=== PATIENT | female | born 1950 | race Caucasian/White ===

== ENCOUNTER 2017-05-21 10:00 | Inpatient (IN) ==
[2017-05-21] MEDS ORDERED: Naloxone 0.4 MG/ML INJ IVP PRN (16:28)
[2017-05-21] MEDS ORDERED: Ondansetron 4 MG/2 ML VIAL IVP PRN (16:28)
[2017-05-21] MEDS ORDERED: *HR* HYDROcodone/Acet 5/325 mg TABLET PO PRN (16:34)
[2017-05-21] MEDS ORDERED: Ipratropium/Albuterol Neb 3 ML IH PRN (16:36)
[2017-05-21] MEDS ORDERED: *HR* Dextrose 50 % in Water (Syg) 50 ML SYRINGE IVP PRN (16:45)
[2017-05-21] MEDS ORDERED: Dextrose Gel 15 GM/37.5 ML TUBE PO PRN ×2 (16:45)
[2017-05-21] MEDS ORDERED: D5% in Water 1,000 ML IVC PRN (16:45)
--- NOTE | 2017-05-21 17:00 | Internal Med History&Physical ---
Date of Encounter: 05/21/17 Time of Encounter: 16:56 Assessment and Plan (1) Acute exacerbation of chronic obstructive airways disease Current visit: Yes Status: Acute 56-year-old female transferred from [place] in acute exacerbation of COPD requiring CPAP, on no home 02 Duo nebs every 4 scheduled and every 2 when necessary Solu-Medrol 60 every 6 hours BiPAP on and off schedule as tolerated 4 hours on 2 hours off with goal to maintain O2 nasal cannula to maintain sats greater than 88% Levaquin daily Ativan as needed while on BiPAP for anxiety Sputum culture Repeat ABGs and develops further respiratory distress (2) Diabetes mellitus Current visit: Yes Status: Acute Hold home medications Accu-Cheks before meals and at bedtime Low-dose coverage scale and diabetic diet Qualifiers: Diabetes mellitus type: type 2 Diabetes mellitus complication status: with unspecified complications Diabetes mellitus intermediate manager insulin use: unspecified halfway insulin use status Qualified Code(s): E11.8 - Type 2 diabetes mellitus with unspecified complications (3) Sore throat Current visit: Yes Status: Acute Check respiratory viral panel Cepacol lozenges for comfort (4) Hypertension Current visit: Yes Status: Chronic Monitor blood pressure and her medications as ordered Qualifiers: Hypertension type: essential hypertension Qualified Code(s): I10 - Essential (primary) hypertension (5) Mixed anxiety depressive disorder Current visit: Yes Status: Acute Home medications as ordered Ativan when necessary as needed (6) Tobacco abuse Current visit: Yes Status: Acute cessation education Internal Medicine - H&P: HPI Chief complaint: sob Admitted From: Hospital to Hospital Transfer Plans for Post Hospital Care: Home History of present illness: Ms. Anderson is a 66 year old female who presented to [facility] by [facility] this morning with shortness of breath, wheezing, cough, and sore throat. She was given 2 albuterol and 3 DuoNeb treatments at that facility, 125 mg of Solu- Medrol, Levaquin IV and Ativan and placed on BiPAP. Gases there were 7.31,/66/ 121/33/98%. Vital signs 98.6 heart rate 108 respiratory 24 and blood pressure 157/80 with pulse ox 84% on room air. She was placed on oxygen and then on a BiPAP at 40%. She was then transferred to this facility. She is currently sitting up in the bed at it at [address] degrees with BiPAP in place. She is able to speak now but is rather anxious. She states she has a history of COPD and bronchitis And continues to smoke 1 pack per day. She also has a history significant for hypertension, diabetes, tachycardia, orthopedic surgeries, cholecystectomy, depression and anxiety. She states she been sick for the past 2-3 days with a fever and just feeling general malaise denies nausea, vomiting, chest pain, abdominal pain, diarrhea or constipation. She states her breathing is much better now and her major complaint at this time is a sore throat. She is aware the plan is clear and has no questions Past Med Surg Social Fam HX - Past Medical History Medical history: COPD, diabetes, hypertension Psychiatric history: anxiety, depression - Past Surgical History Surgical History: cholecystectomy, orthopedic, other (teeth extraction) - Social History Smoking Status: Current every day smoker Packs per day: 1 Smokeless Tobacco Status: No Alcohol use: occasionally Drug use: none Occupational status: unemployed Current living situation: Home - Independent Activity Level: Independent ambulation - Additional Family History Additional family history: Father at age 56 from complications of lung disease, mother is alive at age 85 and is fairly healthy Internal Medicine - H&P: Meds Albuterol Sulfate [Ventolin Hfa] 108 mcg AER Q4HR PRN 05/21/17 [History] Amitriptyline HCl 100 mg PO DAILY 05/21/17 [History] Atenolol [Tenormin] 25 mg PO BID 05/21/17 [History] Buspirone HCl [Buspar] 7.5 mg PO BID 05/21/17 [History] Citalopram Hydrobromide [Citalopram HBr] 20 mg PO DAILY 05/21/17 [History] Docusate [Colace] 100 mg PO DAILY PRN 05/21/17 [History] Fluticasone Propionate [Flovent Hfa] 220 mcg IH BID 05/21/17 [History] Gabapentin [Neurontin] 900 mg PO BID 05/21/17 [History] GlipiZIDE [Glipizide ER] 20 mg PO BID 05/21/17 [History] HYDROcodone/Acet 5/325 mg [[place] 5-325 mg] 1 tab PO Q6H PRN 05/21/17 [History] Lovastatin [Mevacor] 20 mg PO BID 05/21/17 [History] Montelukast Sodium [Singulair] 10 mg PO DAILY 05/21/17 [History] Tizanidine HCl [Zanaflex] 4 mg PO TID PRN 05/21/17 [History] Triamterene/HCTZ 37.5/25mg [Dyazide] 1 each PO DAILY 05/21/17 [History] metFORMIN [Glucophage] 1,000 mg PO BIDWM 05/21/17 [History] 3 Allergy/AdvReac Type Severity Reaction Status Date / Time No Known Allergies Allergy Verified 05/21/17 07:40 All Systems PM: A 10-system review of systems was performed and is negative for pertinent findings except as documented above in the HPI. - Constitutional Constitutional: fever(s), malaise, no chills, no night sweats - EENT Eyes: no change in vision, no discharge, no pain, no photophobia Ears: no ear discharge, no ear pain, no tinnitus Nose, mouth and throat: sore throat, no dysphagia, no nasal discharge, no neck pain - Cardiovascular Cardiovascular ROS IM: no chest pain, no diaphoresis, no dyspnea, no lightheadedness, no palpitations, no syncope - Respiratory Respiratory: cough, dyspnea, dyspnea on exertion, wheezing, chest congestion, change in phlegm color (yellow), no excessive phlegm production - Gastrointestinal Gastrointestinal: no abdominal pain, no diarrhea, no hematemesis, no hematochezia, no melena, no nausea, no vomiting - Genitourinary Genitourinary: no change in urinary stream, no dysuria, no flank pain, no hematuria - Musculoskeletal Musculoskeletal ROS IM: no numbness, no tingling - Integumentary Integumentary IM: no rash, no unusual bruising - Neurological Neurological ROS: no confusion, no convulsions, no focal weakness, no numbness, no tingling, no tremor(s) - Hematologic/Lymphatic Hematologic/Lymphatic: no easy bruising - Constitutional Vitals: Temp Pulse Resp BP Pulse Ox 97.4 F L 99 19 169/83 98 05/21/17 14:30 05/21/17 14:30 05/21/17 14:30 05/21/17 14:30 05/21/17 14:30 General appearance: Present: mild distress, A&O X 3, pleasant, answers questions appropriately - Head Head exam: Present: atraumatic, normocephalic - Eye Eye exam: Present: conjuntiva pink, sclera anicteric - Neck Neck exam general surgery: Present: supple, trachea midline. Absent: lymphadenopathy - Respiratory Respiratory exam: Present: decreased breath sounds, wheezes. Absent: accessory muscle use, rales, respiratory distress, rhonchi - Cardiovascular Cardiovascular exam: Present: RRR, +S1, +S2. Absent: diastolic murmur, gallop, rubs, systolic murmur - GI/Abdominal GI/Abdominal exam: Present: normal bowel sounds, soft, no peritoneal signs. Absent: distended, tenderness - Extremities Exam Extremities exam: Present: warm, radial pulses palpable and symmetrical. Absent : calf tenderness, cyanotic, pedal edema - Neurological Exam Neurological exam: Present: oriented X3, no focal deficits. Absent: pronater drift, facial droop, speech deficit - Skin Skin exam: Present: dry, intact, warm
[2017-05-21] MEDS ORDERED: Ipratropium/Albuterol Neb 3 ML IH ONE (17:21)
[2017-05-21 17:43] LABS: ABG Base Excess 3 mEq/L (-2 to 3); ABG HCO3 32 mEq/L (21-27); ABG Oxygen Saturation 94 % (95-98); ABG PCO2 64 mmHg (35-45); ABG PH 7.31 pH Units (7.32-7.45); ABG PO2 80 mmHg (85-104); ABG TCO2 34 mEq/L (20-26)
--- NOTE | 2017-05-21 18:10 | Event Note ---
Date of Encounter: 05/21/17 Time of Encounter: 18:10 Patient seen and examined with nurse practitioner. Agree with assessment and plan
[2017-05-21] MEDS: Ipratropium/Albuterol Neb 3 ML IH SCH ×2 (19:31→23:18)
[2017-05-21] MEDS: Beclomethasone 80mcg MDI IH SCH (19:31)
[2017-05-21] MEDS ORDERED: *HR* LORazepam 2 MG/ML VIAL IVP SCH (20:00)
[2017-05-21] MEDS ORDERED: Insulin LISPRO 300 UNITS/3 ML VIAL SQ SCH (21:00)
[2017-05-21] MEDS: Gabapentin 300 MG CAPSULE PO SCH (22:15)
[2017-05-21] MEDS: methylPREDNISolone 125 MG/2 ML VIAL IVP SCH (22:16)
[2017-05-22] MEDS: methylPREDNISolone 125 MG/2 ML VIAL IVP SCH ×3 (00:38→12:14)
[2017-05-22] MEDS: Ipratropium/Albuterol Neb 3 ML IH SCH ×3 (03:35→11:24)
[2017-05-22 06:39] LABS: Basophils % 0.3 %; Immature Granulocytes % 0.3 % (0-4); Lymphocytes # 1.7 K/mcL (0.6-4.6); Lymphocytes % 23.9 %; Mean Corpuscular Hemoglobin 31.3 pg (28.0-33.3); Mean Corpuscular Volume 91.8 fL (83.0-100.0); Mean Platelet Volume 10.5 fL (9.4-12.4); Monocytes # 0.2 K/mcL (0.0-1.3); Monocytes % 2.4 %; Neutrophils # 5.1 K/mcL (1.6-8.9); Platelet Count 131 K/mcL (140-400); Red Blood Count 5.12 M/mcL (3.82-4.97); Red Cell Distribution Width 12.3 % (11.5-14.5); Segmented Neutrophils % 73.1 %
[2017-05-22 06:49] LABS: Activated Partial Thrombo Time 26.5 Seconds (26.0-36.0)
[2017-05-22 06:50] VITALS: BP 144/84
[2017-05-22 06:54] LABS: BUN/Creatinine Ratio 29 (6-26); Blood Urea Nitrogen 15 mg/dL (8-23); Calcium 8.8 mg/dL (8.6-10.3); Carbon Dioxide 33 mEq/L (23-29); Chloride 87 mEq/L (98-107); Chol/HDL Ratio 2.5 (0-4.9); Cholesterol 114 mg/dL (< 200); Glucose 212 mg/dL (70-105); HDL Cholesterol 45 mg/dL (40-59); LDL Cholesterol,Calculated 53 mg/dL (0-99); Magnesium 1.9 mg/dL (1.6-2.6); Osmolality,Calculated 267 (280-300); Phosphorous 2.7 mg/dL (2.7-4.5); Potassium 4.5 mEq/L (3.5-5.1); Sodium 125 mEq/L (136-145); Triglycerides 78 mg/dL (< 150); eGFR For African Americans > 60 (> 60); eGFR For Non-African Americans > 60 (> 60)
[2017-05-22] MEDS: Beclomethasone 80mcg MDI IH SCH (07:39)
[2017-05-22] MEDS: Gabapentin 300 MG CAPSULE PO SCH (08:45)
[2017-05-22] MEDS: Insulin LISPRO 300 UNITS/3 ML VIAL SQ SCH ×2 (08:46→12:14)
[2017-05-22] MEDS ORDERED: Levofloxacin 750 MG/150 ML 750 MG/150 ML BAG IVPB SCH (09:00)
--- NOTE | 2017-05-22 10:09 | Internal Med Progress Note ---
Date of Encounter: 05/22/17 Time of Encounter: 10:07 - Assessment and plan (1) Acute exacerbation of chronic obstructive airways disease Current Visit: Yes Status: Acute (2) Diabetes mellitus Current Visit: Yes Status: Acute Qualifiers: Diabetes mellitus type: type 2 Diabetes mellitus complication status: with unspecified complications Diabetes mellitus instructional coach insulin use: unspecified longterm insulin use status Qualified Code(s): E11.8 - Type 2 diabetes mellitus with unspecified complications (3) Sore throat Current Visit: Yes Status: Acute Assessment and plan: Respiratory panel pending the cepacol lozenges (4) Hypertension Current Visit: Yes Status: Chronic Qualifiers: Hypertension type: essential hypertension Qualified Code(s): I10 - Essential (primary) hypertension (5) Mixed anxiety depressive disorder Current Visit: Yes Status: Acute (6) Tobacco abuse Current Visit: Yes Status: Acute - Subjective Interval history: She is alert and oriented times 3 sitting up in bed. She has no complaints at this time. She reports she still has some shortness of breath but attributes this to move it around and talking a lot. - Constitutional Vitals: Temp Pulse Resp BP Pulse Ox 97.5 F L 82 18 144/84 93 05/22/17 06:49 05/22/17 06:49 05/22/17 07:38 05/22/17 06:49 05/22/17 09:07 General appearance: Present: mild distress, A&O X 3, pleasant, answers questions appropriately Exam: Gen.: Vitals noted. No acute distress. AAOx3 HEENT: oropharynx clear, Normocephalic, atraumatic Neck: Supple. No adenopathy. Cardiac: RRR, no murmur, +S1/S2 Pulmonary: decreased breath sounds, minimal diffuse wheezes, rales or rhonchi, equal chest expansion, accessory muscle usage Abdomen: soft, nontender, Bowel sounds noted, no guardingwelling noted Extremities: no BLE edema, nontender calf, no cyanosis or clubbing Neuro: A&Ox3s Psych: Appropriate mood and behavior Internal Medicine: Result - Labs CBC & Chem 7: 05/22/17 06:27 05/22/17 06:27 Labs: Short CBC 05/22/17 Range/Units 06:27 WBC 7.0 (4.3-11.1) K/mcL Hgb 16.0 H (11.5-15.4) g/dL Hct 47.0 H (35.3-44.9) % Plt Count 131 L (140-400) K/mcL Neutrophils # 5.1 (1.6-8.9) K/mcL BMP 05/22/17 06:27 Sodium 125 L Potassium 4.5 Chloride 87 L Carbon Dioxide 33 H BUN 15 Creatinine 0.51 L Glucose 212 H Calcium 8.8 Cardiac Enzymes 05/22/17 Range/Units 06:27 Troponin I < 0.03 (< 0.04) ng/mL - ABG Interpretation ABG results: ABG ABG pH 7.31 pH Units (7.32-7.45) L 05/21/17 17:40 ABG pCO2 64 mmHg (35-45) H 05/21/17 17:40 ABG pO2 80 mmHg (85-104) L 05/21/17 17:40 ABG O2 Saturation 94 % (95-98) L 05/21/17 17:40 PT/INR, D-dimer PT 11.0 Seconds (9.4-12.1) 05/22/17 06:27 - VTE Documentation of Mechanical Device: Graduated compression elastic hosiery Consult Discharge Plan - Plan Referrals: Jania Larsen, BEHAVIORAL SERVICES TECH [Primary Care Provider] -
--- NOTE | 2017-05-22 11:44 | Discharge Summary ---
<Candelario Linares - Last Filed: 05/22/17 15:22> Date of Encounter: 05/22/17 Time of Encounter: 11:38 - Discharge Diagnosis (1) Acute exacerbation of chronic obstructive airways disease Priority: Primary Status: Acute (2) Acute respiratory failure Priority: Secondary Status: Acute Qualifiers: Respiratory failure complication: hypercapnia Qualified Code(s): J96.02 - Acute respiratory failure with hypercapnia (3) Diabetes mellitus Priority: Secondary Status: Chronic Qualifiers: Diabetes mellitus type: type 2 Diabetes mellitus complication status: with unspecified complications Diabetes mellitus skilled nursing insulin use: unspecified skilled nursing insulin use status Qualified Code(s): E11.8 - Type 2 diabetes mellitus with unspecified complications (4) Hypertension Priority: Secondary Status: Chronic Qualifiers: Hypertension type: essential hypertension Qualified Code(s): I10 - Essential (primary) hypertension (5) Tobacco abuse Priority: Secondary Status: Acute - Discharge Medications Prescriptions: Levofloxacin [Levaquin] 500 mg PO DAILY #5 tablet predniSONE [PredniSONE] 10 mg PO DAILY #40 tablet Home Medications: Albuterol Sulfate [Ventolin Hfa] 2 puff IH Q4HR PRN 05/21/17 [History] Amitriptyline HCl 100 mg PO HS 05/21/17 [History] Atenolol [Tenormin] 25 mg PO BID 05/21/17 [History] Buspirone HCl [Buspar] 7.5 mg PO BID 05/21/17 [History] Citalopram Hydrobromide [Citalopram HBr] 20 mg PO DAILY 05/21/17 [History] Docusate [Colace] 100 mg PO DAILY PRN 05/21/17 [History] Fluticasone Propionate [Flovent Hfa] 1 puff IH BID 05/21/17 [History] Gabapentin [Neurontin] 900 mg PO BID 05/21/17 [History] HYDROcodone/Acet 5/325 mg [[place] 5-325 mg] 1 tab PO Q6H PRN 05/21/17 [History] Lovastatin [Mevacor] 20 mg PO BID 05/21/17 [History] Montelukast Sodium [Singulair] 10 mg PO DAILY 05/21/17 [History] Tizanidine HCl [Zanaflex] 4 mg PO TID PRN 05/21/17 [History] Triamterene/HCTZ 37.5/25mg [Dyazide] 1 each PO DAILY 05/21/17 [History] glipiZIDE [Glipizide] 20 mg PO BID 05/21/17 [History] metFORMIN [Glucophage] 1,000 mg PO BIDWM 05/21/17 [History] Levofloxacin [Levaquin] 500 mg PO DAILY #5 tablet 05/22/17 [Rx] predniSONE [PredniSONE] 10 mg PO DAILY #40 tablet 05/22/17 [Rx] Allergies/Adverse Reactions: 3 Allergy/AdvReac Type Severity Reaction Status Date / Time No Known Allergies Allergy Verified 05/21/17 07:40 Date of admission: 05/21/17 13:53 Primary care physician: Jania Larsen CNP Discharging clinician: Candelario Linares Anticipated date of discharge: 05/22/17 - Patient Status Disposition: Left Against Medical Advice Condition: Fair Functional capacity at discharge: independent ambulation Overall status at discharge: patient is progressing back to baseline - Discharge Instructions Instructions: Chronic Obstructive Pulmonary Disease (DC) Follow Up With: Jania Larsen CNP [Primary Care Provider] - 05/28/17 1:40 pm ( ) Additional Instructions: Please follow-up with your primary care physician within one week of discharge If develop worsening shortness of breath, chest pain, fevers, please return to emergency department - Diet and Activity Activity: increase activity as tolerated, wear oxygen at all times Diet: diabetic diet Hospital course: Ms. Anderson is a 66 year old female who was transferred from [facility] for shortness of breath, wheezing, coughing. She required both oxygen and BiPAP to maintain her oxygen saturation above 90. She is not on home oxygen or breathing machines. Chest x-ray did not demonstrate any acute abnormalities and she was started on treatment for COPD exacerbation with oxygen, breathing treatments, steroids and Levaquin. This morning, patient states her breathing is much better when she initially presented but is requiring 5 L nasal cannula. Per nurse, she did qualify for 5 L after the 6 minute walk test, and a prescription has been given to her. Patient was anxious to go home, stating that "she cannot get any rest while in the hospital and will be able to at home ". I advised patient against this, stating that she should stay at least another day to further wean her oxygen and get her breathing better controlled. However, the patient left AGAINST MEDICAL ADVICE. She was given a prescription for 5 day course of Levaquin will also receive a steroid taper. - Time Spent with Patient Total time spent providing and/or coordinating discharge services: Greater than 30 minutes - Constitutional Vitals: Temp Pulse Resp BP Pulse Ox 97.5 F L 82 18 144/84 94 05/22/17 06:49 05/22/17 06:49 05/22/17 11:24 05/22/17 06:49 05/22/17 11:24 General appearance: Present: cooperative, mild distress, pleasant, answers questions appropriately - Head Head exam: Present: atraumatic, normocephalic - Eye Eye exam: Present: PERRL, conjuntiva pink, sclera anicteric - Neck Neck exam general surgery: Present: supple, trachea midline. Absent: lymphadenopathy - Respiratory Respiratory exam: Present: decreased breath sounds. Absent: accessory muscle use, rales, rhonchi, wheezes - Cardiovascular Cardiovascular exam: Present: RRR, +S1, +S2. Absent: diastolic murmur, gallop, rubs, systolic murmur - GI/Abdominal GI/Abdominal exam: Present: normal bowel sounds, soft, no peritoneal signs. Absent: distended, tenderness - Extremities Exam Extremities exam: Present: warm, radial pulses palpable and symmetrical. Absent : calf tenderness, cyanotic, pedal edema - Neurological Exam Neurological exam: Present: alert, oriented X3, no focal deficits. Absent: pronater drift, facial droop, speech deficit - Skin Skin exam: Present: dry, intact - VTE Documentation of Mechanical Device: Graduated compression elastic hosiery <Cipriano Cesar - Last Filed: 05/22/17 18:06> Date of Encounter: 05/22/17 Date of admission: 05/21/17 13:53 Primary care physician: Jania Larsen CNP Hospital course: Ms. Anderson is a 66 year old female - Time Spent with Patient Total time spent providing and/or coordinating discharge services: - Constitutional Vitals: Temp Pulse Resp BP Pulse Ox 97.5 F L 82 18 144/84 94 05/22/17 06:49 05/22/17 06:49 05/22/17 11:24 05/22/17 06:49 05/22/17 11:24 - Attending Attestation I conducted a face to face diagnostic evaluation of this patient and my medical decision-making was reviewed with the Resident Physician, Dr Candelario Linares. I agree with the documented findings, disposition and treatment plan as described except to the extent set forth below: I advised the patient of the risk of worsening shortness of breath, respiratory arrest and if she leaves the hospital at this time. Patient has decision-making capacity and decided to leave the hospital AGAINST MEDICAL ADVICE. On exam she is in no acute distress awake alert oriented 4, oxygen saturation is 96% on 4 L by nasal cannula. Lungs are diminished but clear. Heart is regular. Plan: We will give her prescriptions for Levaquin and prednisone taper, as well as home oxygen. Cipriano Cesar MD
[2017-05-23] MEDS ORDERED: levoFLOXacin 500 MG TABLET PO SCH (09:00)
[2017-05-23] MEDS ORDERED: levoFLOXacin 750 MG TABLET PO SCH (09:00)
== END 2017-05-22 13:28 | disposition left against medical advice (07) | DRG 190 ==
LOC: SUATTDRO 13:53 → 2ANU 13:53
PROVIDERS: ADMIT Hospitalist; ATTEND Internal Medicine

== ENCOUNTER 2017-05-23 16:22 | Inpatient (IN) ==
[2017-05-24] MEDS ORDERED: Acetaminophen 325 MG TABLET PO PRN (02:37)
[2017-05-24] MEDS ORDERED: Naloxone 0.4 MG/ML INJ IVP PRN (02:37)
[2017-05-24] MEDS ORDERED: Ipratropium/Albuterol Neb 3 ML IH PRN (02:39)
[2017-05-24] MEDS ORDERED: *HR* Dextrose 50 % in Water (Syg) 50 ML SYRINGE IVP PRN (02:43)
[2017-05-24] MEDS ORDERED: D5% in Water 1,000 ML IVC PRN (02:43)
[2017-05-24] MEDS ORDERED: Dextrose Gel 15 GM/37.5 ML TUBE PO PRN ×2 (02:43)
[2017-05-24] MEDS ORDERED: Azithromycin 500 MG in D5% in Water 250 ML IVPB SCH (03:00)
[2017-05-24] MEDS: Ipratropium/Albuterol Neb 3 ML IH SCH ×4 (03:48→22:12)
--- NOTE | 2017-05-24 04:23 | Internal Med History&Physical ---
Date of Encounter: 05/24/17 Time of Encounter: 01:00 Assessment and Plan (1) Acute exacerbation of chronic obstructive airways disease Current visit: No Status: Acute Pt has increased SOB. Consider COPD exacerbation. CXR negative. - Place pt on BiPAP now for supportive treatment. - Place pt on azithromycin, solumendral and duoneb - Pt has chronic CO2 retention, no acidosis. (2) Diabetes mellitus Current visit: No Status: Chronic Will cover pt with SSI Qualifiers: Diabetes mellitus type: type 2 Diabetes mellitus complication status: with unspecified complications Diabetes mellitus prison insulin use: unspecified prison insulin use status Qualified Code(s): E11.8 - Type 2 diabetes mellitus with unspecified complications (3) Hypertension Current visit: No Status: Chronic BP is not high now. May resume home med after verification. Qualifiers: Hypertension type: essential hypertension Qualified Code(s): I10 - Essential (primary) hypertension (4) DVT prophylaxis Current visit: Yes Status: Acute Heparin SC Internal Medicine - H&P: HPI Chief complaint: SOB Admitted From: Home Plans for Post Hospital Care: Home History of present illness: Ms. Anderson is a 66 year old female with Hx of COPD, HTN and DM transferred from [facility] for SOB. Pt was hospitalized as COPD exacerbation but signed AMA on 05/22. Pt developped increased SOB since this morning, with mild cough with yellowish sputum. Subjective fever. Pt denies nausea, vomiting, or chest pain. In ER, CXR unremarkable. Pt was admitted as COPD exacerbation. Past Med Surg Social Fam HX - Past Medical History Medical history: COPD, diabetes, hypertension Psychiatric history: anxiety, depression - Past Surgical History Surgical History: cholecystectomy, orthopedic, other - Social History Smoking Status: Former smoker Smokeless Tobacco Status: No Alcohol use: occasionally Drug use: none - Family History Mother History Unknown: Yes Internal Medicine - H&P: Meds Albuterol Sulfate [Ventolin Hfa] 2 puff IH Q4HR PRN 05/21/17 [History] Amitriptyline HCl 100 mg PO HS 05/21/17 [History] Atenolol [Tenormin] 25 mg PO BID 05/21/17 [History] Buspirone HCl [Buspar] 7.5 mg PO BID 05/21/17 [History] Citalopram Hydrobromide [Citalopram HBr] 20 mg PO DAILY 05/21/17 [History] Docusate [Colace] 100 mg PO DAILY PRN 05/21/17 [History] Fluticasone Propionate [Flovent Hfa] 1 puff IH BID 05/21/17 [History] Gabapentin [Neurontin] 900 mg PO BID 05/21/17 [History] HYDROcodone/Acet 5/325 mg [[place] 5-325 mg] 1 tab PO Q6H PRN 05/21/17 [History] Lovastatin [Mevacor] 20 mg PO BID 05/21/17 [History] Montelukast Sodium [Singulair] 10 mg PO DAILY 05/21/17 [History] Tizanidine HCl [Zanaflex] 4 mg PO TID PRN 05/21/17 [History] Triamterene/HCTZ 37.5/25mg [Dyazide] 1 each PO DAILY 05/21/17 [History] glipiZIDE [Glipizide] 20 mg PO BID 05/21/17 [History] metFORMIN [Glucophage] 1,000 mg PO BIDWM 05/21/17 [History] Levofloxacin [Levaquin] 500 mg PO DAILY #5 tablet 05/22/17 [Rx] predniSONE [PredniSONE] 10 mg PO DAILY #40 tablet 05/22/17 [Rx] 3 Allergy/AdvReac Type Severity Reaction Status Date / Time No Known Allergies Allergy Verified 05/21/17 07:40 All Systems PM: A 10-system review of systems was performed and is negative for pertinent findings except as documented above in the HPI. - Constitutional Vitals: Temp Pulse Resp BP Pulse Ox 97.4 F L 108 18 132/75 97 05/24/17 00:09 05/24/17 00:09 05/24/17 03:48 05/24/17 03:48 05/24/17 03:48 General appearance: Present: mild distress, A&O X 3, answers questions appropriately - Head Head exam: Present: atraumatic, normocephalic - Eye Eye exam: Present: PERRL, conjuntiva pink, sclera anicteric Pupils: Present: PERRL - Neck Neck exam general surgery: Present: supple, trachea midline. Absent: lymphadenopathy - Respiratory Respiratory exam: Present: accessory muscle use, decreased breath sounds, CTAB, wheezes (scattered wheezes b/l). Absent: rales, rhonchi - Cardiovascular Cardiovascular exam: Present: RRR, +S1, +S2, tachycardia. Absent: diastolic murmur, gallop, rubs, systolic murmur - GI/Abdominal GI/Abdominal exam: Present: normal bowel sounds, soft, no peritoneal signs. Absent: distended, tenderness - Extremities Exam Extremities exam: Present: warm, radial pulses palpable and symmetrical. Absent : calf tenderness, cyanotic, pedal edema - Neurological Exam Neurological exam: Present: CN II-XII intact, oriented X3, no focal deficits. Absent: pronater drift, facial droop, speech deficit - Skin Skin exam: Present: dry, intact
[2017-05-24] MEDS: methylPREDNISolone 125 MG/2 ML VIAL IVP SCH ×2 (06:12→12:32)
[2017-05-24] MEDS: *HR* Heparin 5,000 UNIT/ML VIAL SQ SCH ×2 (06:13→17:44)
[2017-05-24 07:41] LABS: Basophils % 0.1 %; Hematocrit 46.6 % (35.3-44.9); Immature Granulocytes % 0.4 % (0-4); Lymphocytes # 1.8 K/mcL (0.6-4.6); Lymphocytes % 16.9 %; Mean Corpuscular HGB Conc 34.3 g/dL (31.6-35.5); Mean Corpuscular Hemoglobin 31.8 pg (28.0-33.3); Mean Corpuscular Volume 92.6 fL (83.0-100.0); Mean Platelet Volume 10.6 fL (9.4-12.4); Monocytes # 0.7 K/mcL (0.0-1.3); Monocytes % 6.9 %; Neutrophils # 7.9 K/mcL (1.6-8.9); Platelet Count 150 K/mcL (140-400); Red Blood Count 5.03 M/mcL (3.82-4.97); Red Cell Distribution Width 12.7 % (11.5-14.5); Segmented Neutrophils % 75.7 %
[2017-05-24] MEDS: Insulin LISPRO 300 UNITS/3 ML VIAL SQ SCH ×4 (09:27→21:30)
[2017-05-24 10:48] LABS: BUN/Creatinine Ratio 33 (6-26); Blood Urea Nitrogen 22 mg/dL (8-23); Calcium 8.7 mg/dL (8.6-10.3); Carbon Dioxide 36 mEq/L (23-29); Chloride 87 mEq/L (98-107); Glucose 286 mg/dL (70-105); Osmolality,Calculated 280 (280-300); Potassium 4.2 mEq/L (3.5-5.1); Sodium 128 mEq/L (136-145); eGFR For African Americans > 60 (> 60); eGFR For Non-African Americans > 60 (> 60)
[2017-05-24] MEDS ORDERED: tiZANidine 4 MG TABLET PO PRN (12:25)
[2017-05-24] MEDS: Gabapentin 300 MG CAPSULE PO SCH ×2 (12:38→21:25)
[2017-05-24] MEDS: MethylPREDNISolone 40 MG/ML VIAL IVP SCH ×2 (17:44→23:55)
[2017-05-24] MEDS: Beclomethasone 80mcg MDI IH SCH (22:12)
[2017-05-25 03:48] LABS: Basophils % 0.1 %; Hemoglobin 15.3 g/dL (11.5-15.4); Immature Granulocytes % 0.4 % (0-4); Lymphocytes # 1.5 K/mcL (0.6-4.6); Lymphocytes % 14.9 %; Mean Corpuscular Hemoglobin 31.8 pg (28.0-33.3); Mean Corpuscular Volume 93.6 fL (83.0-100.0); Mean Platelet Volume 9.9 fL (9.4-12.4); Monocytes # 0.3 K/mcL (0.0-1.3); Monocytes % 3.1 %; Neutrophils # 8.3 K/mcL (1.6-8.9); Platelet Count 147 K/mcL (140-400); Red Blood Count 4.81 M/mcL (3.82-4.97); Red Cell Distribution Width 12.5 % (11.5-14.5); Segmented Neutrophils % 81.5 %
[2017-05-25] MEDS: Ipratropium/Albuterol Neb 3 ML IH SCH ×4 (03:53→23:02)
[2017-05-25 04:11] LABS: BUN/Creatinine Ratio 29 (6-26); Blood Urea Nitrogen 19 mg/dL (8-23); Calcium 8.2 mg/dL (8.6-10.3); Carbon Dioxide 35 mEq/L (23-29); Chloride 90 mEq/L (98-107); Glucose 234 mg/dL (70-105); Osmolality,Calculated 272 (280-300); Potassium 4.5 mEq/L (3.5-5.1); Sodium 126 mEq/L (136-145); eGFR For African Americans > 60 (> 60); eGFR For Non-African Americans > 60 (> 60)
[2017-05-25] MEDS: MethylPREDNISolone 40 MG/ML VIAL IVP SCH ×3 (06:08→23:47)
[2017-05-25] MEDS: Azithromycin 250 MG TABLET PO SCH (06:09)
[2017-05-25] MEDS: *HR* Heparin 5,000 UNIT/ML VIAL SQ SCH ×2 (06:09→18:21)
[2017-05-25] MEDS: Gabapentin 300 MG CAPSULE PO SCH ×2 (08:46→21:46)
[2017-05-25] MEDS: Insulin LISPRO 300 UNITS/3 ML VIAL SQ SCH ×4 (08:46→21:46)
[2017-05-25] MEDS ORDERED: Insulin DETEMIR 100 UNIT/ML X5UNITS SQ ONE (09:52)
--- NOTE | 2017-05-25 09:52 | Internal Med Progress Note ---
Date of Encounter: 05/25/17 Time of Encounter: 09:50 - Assessment and plan (1) Acute exacerbation of chronic obstructive airways disease Current Visit: No Status: Acute Assessment and plan: Continue with IV steroids. Wean down to Q8 hours. Continue nebulizers. Continue with the Zithromax. Wean down oxygen as tolerated. BiPAP at night. (2) Hyponatremia Current Visit: Yes Status: Acute Assessment and plan: Unclear etiology at the moment. Sodium was 128 on admission 126 today. Seems like she has had a low for the last 5 days as well. It was 127 on 03/21/2018. Sodium was normal at 138 back in 2014. We will check TSH. Check urine osmolality. Check sodium in the urine. Hold Dyazide. Amitriptyline can cause this as well as it can cause SIADH. I am not going to hold this for now and so I have results back from studies mentioned above. (3) Hypertension Current Visit: No Status: Chronic Assessment and plan: Continue with atenolol. Blood pressure stable. Hold hydrochlorothiazide and triamterene given hyponatremia. Qualifiers: Hypertension type: essential hypertension Qualified Code(s): I10 - Essential (primary) hypertension (4) Diabetes mellitus Current Visit: No Status: Chronic Assessment and plan: Glucoses are elevated. This is exacerbated by being on steroids. I think we can start the patient on a basal insulin. I will give her 15 units of Levemir this morning. Januvia Accu-Cheks. Qualifiers: Diabetes mellitus type: type 2 Diabetes mellitus complication status: with unspecified complications Diabetes mellitus long-term insulin use: unspecified long-term insulin use status Qualified Code(s): E11.8 - Type 2 diabetes mellitus with unspecified complications (5) DVT prophylaxis Current Visit: Yes Status: Acute Assessment and plan: Heparin subcutaneous - Subjective Interval history: No acute events. She was seen and examined. She was admitted with a COPD exacerbation. She left AMA from another facility not finishing treatment for that. She continues to require oxygen. She feels better however. Denies chest pain. She has been afebrile. - Constitutional Vitals: Temp Pulse Resp BP Pulse Ox 97.7 F 86 16 141/80 97 05/25/17 08:07 05/25/17 08:07 05/25/17 03:53 05/25/17 08:07 05/25/17 08:59 General appearance: Present: mild distress, A&O X 3, answers questions appropriately Exam: GEN: NAD CVS: RRR. S1, S2, No m/r/g RESP: Not moving significant amount of air in. Minimal wheezes at the bases. ABD: Soft, NT, ND, +BS EXT: No edema. 2+ DP. No rashes NEURO: Nonfocal Internal Medicine: Result - Labs CBC & Chem 7: 05/25/17 03:35 05/25/17 03:35 Labs: Short CBC 05/25/17 Range/Units 03:35 WBC 10.1 (4.3-11.1) K/mcL Hgb 15.3 (11.5-15.4) g/dL Hct 45.0 H (35.3-44.9) % Plt Count 147 (140-400) K/mcL Neutrophils # 8.3 (1.6-8.9) K/mcL BMP 05/24/17 05/24/17 05/25/17 08:50 10:05 03:35 Sodium TNP 128 L 126 L Potassium TNP 4.2 4.5 Chloride TNP 87 L 90 L Carbon Dioxide TNP 36 H 35 H BUN TNP 22 19 Creatinine TNP 0.66 0.65 Glucose TNP 286 H 234 H Calcium TNP 8.7 8.2 L Consult Discharge Plan - Plan Referrals: Jania Larsen, MANAGER CONTROL [Primary Care Provider] -
[2017-05-25] MEDS: Beclomethasone 80mcg MDI IH SCH ×2 (09:59→23:03)
[2017-05-25 10:23] LABS: Thyroid Stimulating Hormone 0.295 mcIU/mL (0.340-5.600)
[2017-05-25 11:30] LABS: Sodium, Urine 66.3 mEq/L
[2017-05-25] MEDS ORDERED: Acetaminophen/Aspirin/Caffeine TABLET PO PRN (17:00)
[2017-05-26] MEDS: Ipratropium/Albuterol Neb 3 ML IH SCH ×4 (03:56→21:33)
[2017-05-26 04:18] LABS: Basophils % 0.1 %; Hematocrit 49.6 % (35.3-44.9); Hemoglobin 16.7 g/dL (11.5-15.4); Immature Granulocytes % 0.6 % (0-4); Lymphocytes # 1.7 K/mcL (0.6-4.6); Lymphocytes % 16.8 %; Mean Corpuscular HGB Conc 33.7 g/dL (31.6-35.5); Mean Corpuscular Hemoglobin 31.6 pg (28.0-33.3); Mean Corpuscular Volume 93.8 fL (83.0-100.0); Mean Platelet Volume 10.2 fL (9.4-12.4); Monocytes # 0.4 K/mcL (0.0-1.3); Neutrophils # 7.9 K/mcL (1.6-8.9); Platelet Count 178 K/mcL (140-400); Red Blood Count 5.29 M/mcL (3.82-4.97); Red Cell Distribution Width 12.5 % (11.5-14.5); Segmented Neutrophils % 78.5 %
[2017-05-26 04:32] LABS: BUN/Creatinine Ratio 31 (6-26); Blood Urea Nitrogen 21 mg/dL (8-23); Calcium 8.9 mg/dL (8.6-10.3); Carbon Dioxide 40 mEq/L (23-29); Chloride 86 mEq/L (98-107); Glucose 240 mg/dL (70-105); Osmolality,Calculated 281 (280-300); Potassium 4.4 mEq/L (3.5-5.1); Sodium 130 mEq/L (136-145); eGFR For African Americans > 60 (> 60); eGFR For Non-African Americans > 60 (> 60)
[2017-05-26] MEDS: *HR* Heparin 5,000 UNIT/ML VIAL SQ SCH ×2 (05:24→18:03)
[2017-05-26] MEDS: Gabapentin 300 MG CAPSULE PO SCH ×2 (08:35→22:08)
[2017-05-26] MEDS: Azithromycin 250 MG TABLET PO SCH (08:35)
[2017-05-26] MEDS: Insulin LISPRO 300 UNITS/3 ML VIAL SQ SCH ×4 (08:36→22:08)
[2017-05-26] MEDS: MethylPREDNISolone 40 MG/ML VIAL IVP SCH ×3 (08:36→23:55)
--- NOTE | 2017-05-26 09:21 | Internal Med Progress Note ---
Date of Encounter: 05/26/17 Time of Encounter: 09:17 - Assessment and plan (1) Acute exacerbation of chronic obstructive airways disease Current Visit: No Status: Acute Assessment and plan: Continue with IV steroids. No weaning today. c/w with IV solumedrol Q8 hours. Continue nebulizers. Continue with the Zithromax. Wean down oxygen as tolerated. CO2 is 40 on BMP but been on diazide. Will hold that today because of that and hyponatremia. BiPAP at night. (2) Hyponatremia Current Visit: Yes Status: Acute Assessment and plan: Unclear etiology at the moment. Possibly secondary to Dyazide. We will hold that. Sodium is up to 1:30 today. Sodium was 128 on admission. Seems like she has had been low for the last 5 days as well. It was 127 on 03/21/2018. Sodium was normal at 138 back in 2014. TSH low and I will check rest of thyroid panel. Amitriptyline can cause this as well as it can cause SIADH. I am not going to hold this for now (3) Hypertension Current Visit: No Status: Chronic Assessment and plan: Continue with atenolol. Blood pressure stable. Hold hydrochlorothiazide and triamterene given hyponatremia. Qualifiers: Hypertension type: essential hypertension Qualified Code(s): I10 - Essential (primary) hypertension (4) Diabetes mellitus Current Visit: No Status: Chronic Assessment and plan: Glucoses are elevated. This is exacerbated by being on steroids. Received 15 units of Levemir yesterday. Glucose still elevated. We will give 20 units this morning. Continue Accu-Cheks. Qualifiers: Diabetes mellitus type: type 2 Diabetes mellitus complication status: with unspecified complications Diabetes mellitus senior living insulin use: unspecified senior java software developer insulin use status Qualified Code(s): E11.8 - Type 2 diabetes mellitus with unspecified complications (5) DVT prophylaxis Current Visit: Yes Status: Acute Assessment and plan: Heparin subcutaneous - Subjective Interval history: No acute events. She was seen and examined. She was admitted with a COPD exacerbation. She left AMA from another facility not finishing treatment for that. She continues to require oxygen. She feels better however. Denies chest pain. She has been afebrile. - Constitutional Vitals: Temp Pulse Resp BP Pulse Ox 97.5 F L 82 16 136/82 93 05/26/17 08:01 05/26/17 08:01 05/26/17 08:01 05/26/17 08:01 05/26/17 08:01 General appearance: Present: mild distress, A&O X 3, answers questions appropriately Exam: GEN: NAD CVS: RRR. S1, S2, No m/r/g RESP: air movement is much improved. No wheezes ABD: Soft, NT, ND, +BS EXT: No edema. 2+ DP. No rashes NEURO: Nonfocal Internal Medicine: Result - Labs CBC & Chem 7: 05/26/17 03:40 05/26/17 03:40 Labs: Short CBC 05/26/17 Range/Units 03:40 WBC 10.0 (4.3-11.1) K/mcL Hgb 16.7 H (11.5-15.4) g/dL Hct 49.6 H (35.3-44.9) % Plt Count 178 (140-400) K/mcL Neutrophils # 7.9 (1.6-8.9) K/mcL BMP 05/25/17 05/26/17 03:35 03:40 Sodium 126 L 130 L Potassium 4.5 4.4 Chloride 90 L 86 L Carbon Dioxide 35 H 40 H* BUN 19 21 Creatinine 0.65 0.68 Glucose 234 H 240 H Calcium 8.2 L 8.9 Consult Discharge Plan - Plan Referrals: Jania Larsen, LAN ANALYST [Primary Care Provider] -
[2017-05-26] MEDS ORDERED: Insulin DETEMIR 100 UNIT/ML X5UNITS SQ ONE (09:25)
[2017-05-26] MEDS: Beclomethasone 80mcg MDI IH SCH ×2 (10:25→21:33)
[2017-05-26 11:57] LABS: Triiodothyronine (T3) Free 2.06 pg/mL (2.50-3.90)
[2017-05-26 12:02] LABS: Triiodothyronine (T3) Total 0.37 ng/mL (0.87-1.78)
[2017-05-27] MEDS: Ipratropium/Albuterol Neb 3 ML IH SCH ×4 (03:01→22:09)
[2017-05-27 03:54] LABS: Basophils % 0.1 %; Hematocrit 52.6 % (35.3-44.9); Hemoglobin 17.2 g/dL (11.5-15.4); Immature Granulocytes % 0.8 % (0-4); Lymphocytes # 1.8 K/mcL (0.6-4.6); Lymphocytes % 12.4 %; Mean Corpuscular HGB Conc 32.7 g/dL (31.6-35.5); Mean Corpuscular Volume 94.8 fL (83.0-100.0); Mean Platelet Volume 10.2 fL (9.4-12.4); Monocytes # 0.6 K/mcL (0.0-1.3); Monocytes % 3.9 %; Neutrophils # 12.1 K/mcL (1.6-8.9); Platelet Count 242 K/mcL (140-400); Red Blood Count 5.55 M/mcL (3.82-4.97); Red Cell Distribution Width 12.3 % (11.5-14.5); Segmented Neutrophils % 82.8 %
[2017-05-27 04:05] LABS: BUN/Creatinine Ratio 29 (6-26); Blood Urea Nitrogen 22 mg/dL (8-23); Calcium 8.6 mg/dL (8.6-10.3); Carbon Dioxide 42 mEq/L (23-29); Chloride 88 mEq/L (98-107); Glucose 267 mg/dL (70-105); Osmolality,Calculated 285 (280-300); Potassium 4.1 mEq/L (3.5-5.1); Sodium 131 mEq/L (136-145); eGFR For African Americans > 60 (> 60); eGFR For Non-African Americans > 60 (> 60)
[2017-05-27] MEDS: *HR* Heparin 5,000 UNIT/ML VIAL SQ SCH ×2 (05:35→17:55)
[2017-05-27] MEDS: MethylPREDNISolone 40 MG/ML VIAL IVP SCH ×2 (08:52→17:55)
[2017-05-27] MEDS: Azithromycin 250 MG TABLET PO SCH (08:53)
[2017-05-27] MEDS: Gabapentin 300 MG CAPSULE PO SCH ×2 (08:53→20:57)
[2017-05-27] MEDS: Insulin LISPRO 300 UNITS/3 ML VIAL SQ SCH ×5 (08:54→20:57)
[2017-05-27] MEDS ORDERED: Insulin DETEMIR 100 UNIT/ML X5UNITS SQ ONE (10:12)
[2017-05-27] MEDS: Beclomethasone 80mcg MDI IH SCH ×2 (10:34→22:09)
[2017-05-27 12:44] LABS: Bilirubin,Urine Negative (Negative); Blood,Urine Negative (Negative); Clarity,Urine Clear (Clear); Color,Urine Yellow (Yellow); Glucose,Urine (UA) >=1000 mg/dL (Normal); Ketones,Urine Negative (Negative); Leukocyte Esterase,Urine Negative (Negative); Nitrite,Urine Negative (Negative); Protein,Urine 30 mg/dL (Neg-Trace); Specific Gravity,Urine 1.017 (1.010-1.025); Urobilinogen,Urine Normal (Normal)
[2017-05-27 12:46] LABS: Bacteria,Urine None Seen per hpf (None-Few); Hyaline Casts,Urine None Seen per lpf (None-Few); Squamous Epithelial Cell,Urine Moderate per lpf (None-Few); WBC,Urine 0-3 per hpf (0-3)
--- NOTE | 2017-05-27 13:56 | Internal Med Progress Note ---
Date of Encounter: 05/27/17 Time of Encounter: 10:00 - Assessment and plan (1) Acute exacerbation of chronic obstructive airways disease Current Visit: No Status: Acute Assessment and plan: Continue with IV steroids. I feel that her breathing is significantly improved. I will decrease steroids to every 12 hours. Continue nebulizers. Continue with the Zithromax. Wean down oxygen as tolerated. CO2 is in the 40s on BMP but been on diazide. Will continue to hold that today because of that and hyponatremia. BiPAP at night. (2) Febrile illness Current Visit: Yes Status: Acute Assessment and plan: She had a low-grade temperature is morning. She denies any cough or urinary symptoms. We will check a chest x-ray and check a urinalysis. Check blood cultures. Need to monitor. The patient is on Zithromax. (3) Hyponatremia Current Visit: Yes Status: Acute Assessment and plan: Unclear etiology at the moment. Possibly secondary to Dyazide. Improving slowly. We will hold that. Sodium is up to 131 today. Sodium was 128 on admission. Seems like she has had been low for the last 5 days as well. It was 127 on 03/21/2018. Sodium was normal at 138 back in 2014. TSH low and I will check rest of thyroid panel. Amitriptyline can cause this as well as it can cause SIADH. I am not going to hold this for now (4) Hypertension Current Visit: No Status: Chronic Assessment and plan: Continue with atenolol. Blood pressure is on the higher side. I have been holding her Dyazide secondary to hyponatremia. I will add Norvasc. We may have to add hydralazine. Qualifiers: Hypertension type: essential hypertension Qualified Code(s): I10 - Essential (primary) hypertension (5) Diabetes mellitus Current Visit: No Status: Chronic Assessment and plan: Glucoses are elevated again. This is exacerbated by being on steroids. Give 25 units of levemir this am. will add 5 units with meals. Going down on steroids may help. check A1c. Continue Accu-Cheks. Qualifiers: Diabetes mellitus type: type 2 Diabetes mellitus complication status: with unspecified complications Diabetes mellitus exterminator helper termite insulin use: unspecified exterminator helper termite insulin use status Qualified Code(s): E11.8 - Type 2 diabetes mellitus with unspecified complications (6) DVT prophylaxis Current Visit: Yes Status: Acute Assessment and plan: Heparin subcutaneous - Subjective Interval history: Patient was seen and examined. She had a temperature 100.4. She denies any cough. She denies any urinary symptoms. She says she is feeling better. She was admitted with a COPD exacerbation. She left AMA from another facility not finishing treatment for that. She continues to require oxygen. She feels better however. Denies chest pain. - Constitutional Vitals: Temp Pulse Resp BP Pulse Ox 97.6 F 84 16 163/77 94 05/27/17 13:15 05/27/17 13:15 05/27/17 13:15 05/27/17 13:15 05/27/17 13:15 General appearance: Present: mild distress, A&O X 3, answers questions appropriately Exam: GEN: NAD CVS: RRR. S1, S2, No m/r/g RESP: air movement is much improved. No wheezes ABD: Soft, NT, ND, +BS EXT: No edema. 2+ DP. No rashes NEURO: Nonfocal Internal Medicine: Result - Labs CBC & Chem 7: 05/27/17 03:31 05/27/17 03:31 Labs: Short CBC 05/27/17 Range/Units 03:31 WBC 14.6 H (4.3-11.1) K/mcL Hgb 17.2 H (11.5-15.4) g/dL Hct 52.6 H (35.3-44.9) % Plt Count 242 (140-400) K/mcL Neutrophils # 12.1 H (1.6-8.9) K/mcL BMP 05/27/17 03:31 Sodium 131 L Potassium 4.1 Chloride 88 L Carbon Dioxide 42 H* BUN 22 Creatinine 0.77 Glucose 267 H Calcium 8.6 Urine 05/27/17 Range/Units 12:30 Urine Color Yellow (Yellow) Urine Clarity Clear (Clear) Urine pH 7.0 (5.0-8.0) pH Units Ur Specific [place] 1.017 (1.010-1.025) Urine Protein 30 H (Neg-Trace) mg/dL Urine Glucose (UA) >=1000 H (Normal) mg/dL - Impressions Impressions Chest X-Ray 05/27/17 10:15 IMPRESSION: Diffuse bronchial wall thickening suggests airway inflammation, such as that seen with asthma, bronchitis or smoking. No consolidative pneumonia. D/ / Matthew Pan / Matthew Pan Interpreting Provider: Matthew Pan Consult Discharge Plan - Plan Referrals: Jania Larsen, INTERNET MARKETING COORDINATOR [Primary Care Provider] -
[2017-05-27] MEDS: amLODIPine 5 MG TABLET PO SCH (16:28)
[2017-05-27] MEDS: Nystatin POWDER 30 GM BOTTLE TP SCH (20:57)
[2017-05-28] MEDS: Ipratropium/Albuterol Neb 3 ML IH SCH ×4 (04:47→22:17)
[2017-05-28 04:48] LABS: Basophils % 0.1 %; Hemoglobin 17.1 g/dL (11.5-15.4); Immature Granulocytes % 0.6 % (0-4); Lymphocytes # 1.4 K/mcL (0.6-4.6); Lymphocytes % 12.3 %; Mean Corpuscular HGB Conc 32.9 g/dL (31.6-35.5); Mean Corpuscular Hemoglobin 31.3 pg (28.0-33.3); Mean Corpuscular Volume 95.1 fL (83.0-100.0); Mean Platelet Volume 10.1 fL (9.4-12.4); Monocytes # 0.5 K/mcL (0.0-1.3); Monocytes % 4.4 %; Neutrophils # 9.7 K/mcL (1.6-8.9); Platelet Count 183 K/mcL (140-400); Red Blood Count 5.47 M/mcL (3.82-4.97); Red Cell Distribution Width 12.6 % (11.5-14.5); Segmented Neutrophils % 82.6 %
[2017-05-28 05:02] LABS: Hemoglobin A1C 7.5 %
[2017-05-28 05:16] LABS: BUN/Creatinine Ratio 32 (6-26); Blood Urea Nitrogen 21 mg/dL (8-23); Calcium 8.7 mg/dL (8.6-10.3); Carbon Dioxide 41 mEq/L (23-29); Chloride 91 mEq/L (98-107); Glucose 196 mg/dL (70-105); Osmolality,Calculated 286 (280-300); Sodium 134 mEq/L (136-145); eGFR For African Americans > 60 (> 60); eGFR For Non-African Americans > 60 (> 60)
[2017-05-28] MEDS: MethylPREDNISolone 40 MG/ML VIAL IVP SCH (06:27)
[2017-05-28] MEDS: Azithromycin 250 MG TABLET PO SCH (06:27)
[2017-05-28] MEDS: *HR* Heparin 5,000 UNIT/ML VIAL SQ SCH ×2 (06:28→18:49)
[2017-05-28] MEDS: Insulin LISPRO 300 UNITS/3 ML VIAL SQ SCH ×7 (10:42→20:09)
[2017-05-28] MEDS: Gabapentin 300 MG CAPSULE PO SCH ×2 (10:44→20:08)
[2017-05-28] MEDS: amLODIPine 5 MG TABLET PO SCH (10:44)
[2017-05-28] MEDS: Nystatin POWDER 30 GM BOTTLE TP SCH ×2 (10:45→20:08)
[2017-05-28] MEDS: Beclomethasone 80mcg MDI IH SCH ×2 (10:56→22:17)
--- NOTE | 2017-05-28 12:04 | Internal Med Progress Note ---
Date of Encounter: 05/28/17 Time of Encounter: 12:01 - Assessment and plan (1) Acute exacerbation of chronic obstructive airways disease Current Visit: No Status: Acute Assessment and plan: Continue with IV steroids. I feel that her breathing is significantly improved. Continue IV steroids but will decrease to daily. Check an ABG now has her CO2 on the BMP is continuously elevated. His likely a CO2 retainer. May need to put on BiPAP for some time. We will stress the need for BiPAP at night. In the morning. BiPAP qualification study at night. Continue nebulizers. Continue with the Zithromax. Wean down oxygen as tolerated. (2) Febrile illness Current Visit: Yes Status: Acute Assessment and plan: Resolved. Workup is negative. Likely bronchitis causing this. She is afebrile now for the last 24 hours. The patient is on Zithromax. (3) Hyponatremia Current Visit: Yes Status: Acute Assessment and plan: Unclear etiology at the moment. Possibly secondary to Dyazide. We will continue to hold. Improving again. Sodium is up to 134 today. Sodium was 128 on admission. Sodium was normal at 138 back in 2014. TSH low and I will check rest of thyroid panel. Amitriptyline can cause this as well as it can cause SIADH. I am not going to hold this for now (4) Hypertension Current Visit: No Status: Chronic Assessment and plan: Continue with atenolol. Added Norvasc yesterday 5 migrans. Her blood pressure is better now. I have been holding her Dyazide secondary to hyponatremia. We may have to add hydralazine or another agent or uptitrate Norvasc if her blood pressure continues to be elevated.. Qualifiers: Hypertension type: essential hypertension Qualified Code(s): I10 - Essential (primary) hypertension (5) Diabetes mellitus Current Visit: No Status: Chronic Assessment and plan: Glucoses is better. A1c was 7.5. [id number] glucose 168 this morning. Being on steroids exacerbates hyperglycemia. We are starting to taper down her steroids. We will give give 30 units of levemir this am. Continue with 5 units with meals. Continue Accu-Cheks. Qualifiers: Diabetes mellitus type: type 2 Diabetes mellitus complication status: with unspecified complications Diabetes mellitus shelter insulin use: unspecified shelter insulin use status Qualified Code(s): E11.8 - Type 2 diabetes mellitus with unspecified complications (6) DVT prophylaxis Current Visit: Yes Status: Acute - Subjective Interval history: Patient was seen and examined. She has not been febrile for 24 hours. She had a temperature 100.4 yesterday morning. She denies any cough. She says she is feeling better. She was admitted with a COPD exacerbation. She left AMA from another facility not finishing treatment for that. She continues to require oxygen. She is on chronic oxygen. Continues to feel better.. Denies chest pain. - Constitutional Vitals: Temp Pulse Resp BP Pulse Ox 97.7 F 91 17 147/78 93 05/28/17 11:53 05/28/17 11:53 05/28/17 11:53 05/28/17 11:53 05/28/17 11:53 General appearance: Present: mild distress, A&O X 3, answers questions appropriately Exam: GEN: NAD CVS: RRR. S1, S2, No m/r/g RESP: air movement is much improved. No wheezes ABD: Soft, NT, ND, +BS EXT: No edema. 2+ DP. No rashes NEURO: Nonfocal Internal Medicine: Result - Labs CBC & Chem 7: 05/28/17 04:37 05/28/17 04:37 Labs: Short CBC 05/28/17 Range/Units 04:37 WBC 11.7 H (4.3-11.1) K/mcL Hgb 17.1 H (11.5-15.4) g/dL Hct 52.0 H (35.3-44.9) % Plt Count 183 (140-400) K/mcL Neutrophils # 9.7 H (1.6-8.9) K/mcL BMP 05/28/17 04:37 Sodium 134 L Potassium 5.0 Chloride 91 L Carbon Dioxide 41 H* BUN 21 Creatinine 0.66 Glucose 196 H Calcium 8.7 Urine 05/27/17 Range/Units 12:30 Urine Color Yellow (Yellow) Urine Clarity Clear (Clear) Urine pH 7.0 (5.0-8.0) pH Units Ur Specific [place] 1.017 (1.010-1.025) Urine Protein 30 H (Neg-Trace) mg/dL Urine Glucose (UA) >=1000 H (Normal) mg/dL Consult Discharge Plan - Plan Referrals: Jania Larsen, SURYA [Primary Care Provider] -
[2017-05-28] MEDS ORDERED: Insulin DETEMIR 100 UNIT/ML X5UNITS SQ ONE (12:12)
[2017-05-28 13:23] LABS: ABG Base Excess 12 mEq/L (-2 to 3); ABG HCO3 42 mEq/L (21-27); ABG Oxygen Saturation 87 % (95-98); ABG PCO2 67 mmHg (35-45); ABG PO2 56 mmHg (85-104); ABG TCO2 44 mEq/L (20-26)
[2017-05-29] MEDS: Ipratropium/Albuterol Neb 3 ML IH SCH ×4 (04:04→21:20)
[2017-05-29] MEDS: *HR* Heparin 5,000 UNIT/ML VIAL SQ SCH ×2 (06:09→18:27)
[2017-05-29] MEDS: Azithromycin 250 MG TABLET PO SCH (06:09)
[2017-05-29 06:45] LABS: Basophils % 0.2 %; Eosinophils % 0.2 %; Hemoglobin 17.8 g/dL (11.5-15.4); Immature Granulocytes % 0.7 % (0-4); Lymphocytes # 5.2 K/mcL (0.6-4.6); Lymphocytes % 34.8 %; Mean Corpuscular HGB Conc 32.2 g/dL (31.6-35.5); Mean Corpuscular Hemoglobin 31.1 pg (28.0-33.3); Mean Corpuscular Volume 96.3 fL (83.0-100.0); Mean Platelet Volume 10.1 fL (9.4-12.4); Monocytes # 1.2 K/mcL (0.0-1.3); Monocytes % 8.4 %; Neutrophils # 8.3 K/mcL (1.6-8.9); Platelet Count 203 K/mcL (140-400); Red Blood Count 5.73 M/mcL (3.82-4.97); Red Cell Distribution Width 12.9 % (11.5-14.5); Segmented Neutrophils % 55.7 %
[2017-05-29 06:49] LABS: Hematocrit 55.2 % (35.3-44.9)
[2017-05-29 07:19] LABS: BUN/Creatinine Ratio 30 (6-26); Blood Urea Nitrogen 20 mg/dL (8-23); Calcium 8.8 mg/dL (8.6-10.3); Carbon Dioxide 40 mEq/L (23-29); Chloride 92 mEq/L (98-107); Glucose 69 mg/dL (70-105); Osmolality,Calculated 281 (280-300); Potassium 4.1 mEq/L (3.5-5.1); Sodium 135 mEq/L (136-145); eGFR For African Americans > 60 (> 60); eGFR For Non-African Americans > 60 (> 60)
[2017-05-29] MEDS: Gabapentin 300 MG CAPSULE PO SCH ×2 (08:22→20:57)
[2017-05-29] MEDS: Sennosides/Docusate Sodium TABLET PO SCH ×2 (08:23→20:56)
[2017-05-29] MEDS: amLODIPine 5 MG TABLET PO SCH (08:23)
[2017-05-29] MEDS ORDERED: methylPREDNISolone 125 MG/2 ML VIAL IVP SCH (09:00)
[2017-05-29] MEDS: Nystatin POWDER 30 GM BOTTLE TP SCH ×2 (10:02→20:57)
[2017-05-29] MEDS: Insulin LISPRO 300 UNITS/3 ML VIAL SQ SCH ×7 (10:03→20:57)
[2017-05-29] MEDS: Beclomethasone 80mcg MDI IH SCH ×2 (10:38→21:20)
--- NOTE | 2017-05-29 17:07 | Internal Med Progress Note ---
Date of Encounter: 05/29/17 Time of Encounter: 10:00 - Assessment and plan (1) Acute exacerbation of chronic obstructive airways disease Current Visit: Yes Status: Acute Assessment and plan: Improving; Completed a 5-day course of Zithromax; will change steroids to enteral Prednisone; leukocytosis noted, likely related to steroid-use; continues to require 4L/min via [place] O2, at baseline; she does have home O2; BiPAP qualification study overnight; ABG reviewed- pCO2-67; (2) Hyponatremia Current Visit: Yes Status: Acute Assessment and plan: resolved; serum sodium noted to be 135 today; likely due to use of diuretics, currently held; (3) Diabetes mellitus Current Visit: Yes Status: Chronic Assessment and plan: blood sugars noted to be better-controlled, likely due to decreasing IV steroids ; continue current insulin regimen and Accucheck blood glucose monitoring; diabetic diet; Qualifiers: Diabetes mellitus type: type 2 Diabetes mellitus complication status: with unspecified complications Diabetes mellitus joint terminal attack controller insulin use: without senior living use Qualified Code(s): E11.8 - Type 2 diabetes mellitus with unspecified complications (4) Hypertension Current Visit: Yes Status: Chronic Qualifiers: Hypertension type: essential hypertension Qualified Code(s): I10 - Essential (primary) hypertension - Subjective Interval history: Reports feeling much better; improving cough, shortness of breath and wheezing; - Constitutional Vitals: Temp Pulse Resp BP Pulse Ox 98.0 F 91 18 147/77 90 05/29/17 15:50 05/29/17 15:50 05/29/17 16:07 05/29/17 15:50 05/29/17 16:07 General appearance: Present: A&O X 3, answers questions appropriately - Respiratory Respiratory exam: Present: decreased breath sounds (B/L decreased air entry), CTAB. Absent: accessory muscle use, rales, rhonchi, wheezes - Cardiovascular Cardiovascular exam: Present: RRR, +S1, +S2. Absent: diastolic murmur, gallop, rubs, systolic murmur - GI/Abdominal GI/Abdominal exam: Present: normal bowel sounds, soft, no peritoneal signs. Absent: distended, tenderness - Extremities Exam Extremities exam: Present: pedal edema, warm, radial pulses palpable and symmetrical. Absent: calf tenderness, cyanotic - Neurological Exam Neurological exam: Present: CN II-XII intact, oriented X3, no focal deficits. Absent: pronater drift, facial droop, speech deficit Internal Medicine: Result - Labs CBC & Chem 7: 05/29/17 06:32 05/29/17 06:32 Labs: Short CBC 05/29/17 Range/Units 06:32 WBC 14.8 H (4.3-11.1) K/mcL Hgb 17.8 H (11.5-15.4) g/dL Hct 55.2 H (35.3-44.9) % Plt Count 203 (140-400) K/mcL Neutrophils # 8.3 (1.6-8.9) K/mcL BMP 05/29/17 06:32 Sodium 135 L Potassium 4.1 Chloride 92 L Carbon Dioxide 40 H* BUN 20 Creatinine 0.66 Glucose 69 L Calcium 8.8 - ABG Interpretation ABG results: ABG ABG pH 7.40 pH Units (7.32-7.45) 05/28/17 13:20 ABG pCO2 67 mmHg (35-45) H 05/28/17 13:20 ABG pO2 56 mmHg (85-104) L 05/28/17 13:20 ABG O2 Saturation 87 % (95-98) L 05/28/17 13:20 Consult Discharge Plan - Plan Instructions: Acute Respiratory Distress Syndrome (DC) Referrals: Jania Larsen CNP [Primary Care Provider] - 06/06/17 2:00 pm (Please follow up as schedule..)
[2017-05-30] MEDS: Ipratropium/Albuterol Neb 3 ML IH SCH ×3 (04:32→15:46)
[2017-05-30] MEDS: *HR* Heparin 5,000 UNIT/ML VIAL SQ SCH (05:52)
[2017-05-30] MEDS: Sennosides/Docusate Sodium TABLET PO SCH (08:04)
[2017-05-30] MEDS: Nystatin POWDER 30 GM BOTTLE TP SCH (08:05)
[2017-05-30] MEDS: Gabapentin 300 MG CAPSULE PO SCH (08:05)
[2017-05-30] MEDS: amLODIPine 5 MG TABLET PO SCH (08:05)
[2017-05-30] MEDS: Insulin LISPRO 300 UNITS/3 ML VIAL SQ SCH ×4 (08:06→12:12)
[2017-05-30] MEDS ORDERED: predniSONE 20 MG TABLET PO SCH (09:00)
[2017-05-30] MEDS: Beclomethasone 80mcg MDI IH SCH (10:19)
[2017-05-30 11:29] VITALS: BP 141/60
--- NOTE | 2017-05-30 14:59 | Discharge Summary ---
Date of Encounter: 05/30/17 Time of Encounter: 14:57 - Discharge Diagnosis (1) Acute exacerbation of chronic obstructive airways disease Priority: Primary Status: Acute (2) Hyponatremia Priority: Primary Status: Resolved (3) Diabetes mellitus Priority: Secondary Status: Chronic Qualifiers: Diabetes mellitus type: type 2 Diabetes mellitus complication status: with unspecified complications Diabetes mellitus termination clerk insulin use: without [place] [facility] use Qualified Code(s): E11.8 - Type 2 diabetes mellitus with unspecified complications (4) Hypertension Priority: Secondary Status: Chronic Qualifiers: Hypertension type: essential hypertension Qualified Code(s): I10 - Essential (primary) hypertension - Discharge Medications Prescriptions: Ipratropium/Albuterol Neb [Duoneb] 3 ml IH [id number] PRN 30 Days inhsol PRN Reason: Shortness Of Breath/Wheezing Nebulizer [Aeroeclipse] 1 each MC Q4H PRN 30 Days each PRN Reason: Shortness Of Breath/Wheezing Nebulizer Accessories [Sootheneb [id number] Adult Mask] 1 each MC Q4H PRN 30 Days each PRN Reason: Shortness Of Breath/Wheezing Nebulizer Accessories [Sootheneb [id number] Mesh Cap] 1 each MC Q4H PRN 30 Days each PRN Reason: Shortness Of Breath/Wheezing Nebulizer Accessories [Sootheneb [id number] Med Cup] 1 each MC Q4H PRN 30 Days each PRN Reason: Shortness Of Breath/Wheezing predniSONE [PredniSONE] 40 mg PO DAILY #6 tablet Home Medications: Albuterol Sulfate [Ventolin Hfa] 2 puff IH Q4HR PRN 05/21/17 [History] Amitriptyline HCl 100 mg PO HS 05/21/17 [History] Atenolol [Tenormin] 25 mg PO BID 05/21/17 [History] Buspirone HCl [Buspar] 15 mg PO DAILY 05/21/17 [History] Citalopram Hydrobromide [Citalopram HBr] 20 mg PO DAILY 05/21/17 [History] Docusate [Colace] 100 mg PO DAILY PRN 05/21/17 [History] Fluticasone Propionate [Flovent Hfa] 1 puff IH BID 05/21/17 [History] Gabapentin [Neurontin] 900 mg PO BID 05/21/17 [History] Lovastatin [Mevacor] 20 mg PO BID 05/21/17 [History] Montelukast Sodium [Singulair] 10 mg PO DAILY 05/21/17 [History] Tizanidine HCl [Zanaflex] 4 mg PO TID PRN 05/21/17 [History] Triamterene/HCTZ 37.5/25mg [Dyazide] 1 each PO DAILY 05/21/17 [History] glipiZIDE [Glipizide] 20 mg PO BID 05/21/17 [History] metFORMIN [Glucophage] 1,000 mg PO BIDWM 05/21/17 [History] Ipratropium/Albuterol Neb [Duoneb] 3 ml IH [id number] PRN 30 Days inhsol 05/30/17 [Rx] Nebulizer Accessories [Sootheneb [id number] Adult Mask] 1 each MC Q4H PRN 30 Days each 05/30/17 [Rx] Nebulizer Accessories [Sootheneb [id number] Med Cup] 1 each MC Q4H PRN 30 Days each 05/30/17 [Rx] Nebulizer Accessories [Sootheneb [id number] Mesh Cap] 1 each MC Q4H PRN 30 Days each 05/30/17 [Rx] Nebulizer [Aeroeclipse] 1 each MC Q4H PRN 30 Days each 05/30/17 [Rx] predniSONE [PredniSONE] 40 mg PO DAILY #6 tablet 05/30/17 [Rx] Allergies/Adverse Reactions: 3 Allergy/AdvReac Type Severity Reaction Status Date / Time No Known Allergies Allergy Verified 05/21/17 07:40 Date of admission: 05/29/17 13:40 Primary care physician: Jania Larsen CNP Consults: 05/24/17 11:24 Consult to Invasive Line Access Team [CONS] Routine Reason for Consult: Linited Access Line Type: EPIV 05/29/17 10:53 Consult to Occupational Therapy [CONS] Routine Comment: Evaluate, develop and implement POC Reason for Consult: eval for poss ecf Consult to Physical Therapy [CONS] Routine Comment: Evaluate, develop and implement POC Reason for Consult: eval for poss ecf Discharging clinician: Jacqueline Clay Anticipated date of discharge: 05/30/17 - Patient Status Disposition: Home Health Service Condition: Fair Functional capacity at discharge: uses cane/walker Overall status at discharge: patient is progressing back to baseline - Discharge Instructions Instructions: Acute Respiratory Distress Syndrome (DC) Follow Up With: Jania Larsen CNP [Primary Care Provider] - 06/06/17 2:00 pm (Please follow up as schedule..) - Diet and Activity Activity: as per physical therapy, wear oxygen at all times Diet: diabetic diet, low fat, low cholesterol, low salt diet Hospital course: Ms. Anderson is a 66 year old female with the above medical problems, who was admitted with worsening shortness of breath. She was noted to be in acute exacerbation of COPD and started on empiric IV antibiotics, IV steroids, bronchodilators and supplemental O2. She required NIPPV with BiPAP support initially. Her ABG revealed CO2 retention, however she did not qualify for home BiPAP. Chest XRay showed no e/o- pneumonia. Patient improved gradually on this regimen, and her O2 requirements are currently at baseline at 4L/min via [place], and she does have home O2. SHe had steroid-induced hyperglycemia, which improved after changing steroids to oral Prednisone. SHe is currently medically stable for discharge with outpatient f/up. - Time Spent with Patient Total time spent providing and/or coordinating discharge services: Greater than 30 minutes (50 min) - Constitutional Vitals: Temp Pulse Resp BP Pulse Ox 97.6 F 82 16 141/60 94 05/30/17 11:25 05/30/17 11:25 05/30/17 11:25 05/30/17 11:25 05/30/17 11:25 General appearance: Present: A&O X 3, answers questions appropriately - Respiratory Respiratory exam: Present: decreased breath sounds (B/L decreased air entry), CTAB. Absent: accessory muscle use, rales, rhonchi, wheezes
--- NOTE | 2017-05-30 14:59 | Physician Discharge Referral ---
Home Health/Hosp Referral Info Transfer to: Home Health Attending Provider: Jacqueline Clay Provider in Charge Post Discharge: PCP - Diagnosis (1) Acute exacerbation of chronic obstructive airways disease Priority: Primary Status: Acute (2) Hyponatremia Priority: Primary Status: Resolved (3) Diabetes mellitus Priority: Secondary Status: Chronic (4) Hypertension Priority: Secondary Status: Chronic - Respiratory Orders Oxygen / L per min (4L/min via [place]) Smoking Cessation: Smoking cessation has been advised. For more information, call the [place] Tobacco Quit Line at 6-922-OXWS-NOW. - Diet/Nutrition Diet/Nutrition Orders: No Added Salt (MATY), Cardiac, No Concentrated Sweets ( diabetic) - Activity Activity Orders: Ambulate - Services Needed Following services are medically necessary services: Nursing, Physical Therapy, Occupational Therapy - Transfer Medications Prescriptions: Ipratropium/Albuterol Neb [Duoneb] 3 ml IH [id number] PRN 30 Days inhsol PRN Reason: Shortness Of Breath/Wheezing Nebulizer [Aeroeclipse] 1 each MC Q4H PRN 30 Days each PRN Reason: Shortness Of Breath/Wheezing Nebulizer Accessories [Sootheneb [id number] Adult Mask] 1 each MC Q4H PRN 30 Days each PRN Reason: Shortness Of Breath/Wheezing Nebulizer Accessories [Sootheneb [id number] Mesh Cap] 1 each MC Q4H PRN 30 Days each PRN Reason: Shortness Of Breath/Wheezing Nebulizer Accessories [Sootheneb [id number] Med Cup] 1 each MC Q4H PRN 30 Days each PRN Reason: Shortness Of Breath/Wheezing predniSONE [PredniSONE] 40 mg PO DAILY #6 tablet Home Medications: Albuterol Sulfate [Ventolin Hfa] 2 puff IH Q4HR PRN 05/21/17 [History] Amitriptyline HCl 100 mg PO HS 05/21/17 [History] Atenolol [Tenormin] 25 mg PO BID 05/21/17 [History] Buspirone HCl [Buspar] 15 mg PO DAILY 05/21/17 [History] Citalopram Hydrobromide [Citalopram HBr] 20 mg PO DAILY 05/21/17 [History] Docusate [Colace] 100 mg PO DAILY PRN 05/21/17 [History] Fluticasone Propionate [Flovent Hfa] 1 puff IH BID 05/21/17 [History] Gabapentin [Neurontin] 900 mg PO BID 05/21/17 [History] Lovastatin [Mevacor] 20 mg PO BID 05/21/17 [History] Montelukast Sodium [Singulair] 10 mg PO DAILY 05/21/17 [History] Tizanidine HCl [Zanaflex] 4 mg PO TID PRN 05/21/17 [History] Triamterene/HCTZ 37.5/25mg [Dyazide] 1 each PO DAILY 05/21/17 [History] glipiZIDE [Glipizide] 20 mg PO BID 05/21/17 [History] metFORMIN [Glucophage] 1,000 mg PO BIDWM 05/21/17 [History] Ipratropium/Albuterol Neb [Duoneb] 3 ml IH [id number] PRN 30 Days inhsol 05/30/17 [Rx] Nebulizer Accessories [Sootheneb [id number] Adult Mask] 1 each MC Q4H PRN 30 Days each 05/30/17 [Rx] Nebulizer Accessories [Sootheneb [id number] Med Cup] 1 each MC Q4H PRN 30 Days each 05/30/17 [Rx] Nebulizer Accessories [Sootheneb Crt143 Mesh Cap] 1 each MC Q4H PRN 30 Days each 05/30/17 [Rx] Nebulizer [Aeroeclipse] 1 each MC Q4H PRN 30 Days each 05/30/17 [Rx] predniSONE [PredniSONE] 40 mg PO DAILY #6 tablet 05/30/17 [Rx] Allergies/Adverse Reactions: 3 Allergy/AdvReac Type Severity Reaction Status Date / Time No Known Allergies Allergy Verified 05/21/17 07:40 Certification: Further, I certify that my clinical findings support that this patient is homebound (i.e. absences from home require considerable and taxing effort and are for medical reasons or gnosticist services or infrequently or short duration when for other reasons) because: Homebound Reason: Patient requires assistance of a person or device to safely leave home, Leaving home requires considerable and taxing effort due to condition, Severity of cardiac or pulmonary status limits activity tolerance Attestation: My signature below is to certify that this patient is under my care and that I, or nurse practitioner, or a physician's stonecutter assistant working with me, has a face-to -face encounter with this patient.
== END 2017-05-30 16:57 | disposition home health service (06) | DRG 191 ==
LOC: 2ANU → SUATTDRO 05-24
PROVIDERS: ADMIT Hospitalist; ATTEND Internal Medicine

== ENCOUNTER 2020-03-30 00:09 | Inpatient (IN) ==
[2020-03-30] MEDS: FentaNYL (PF) 1,000 MCG/100 ML IV.SOLN IVC SCH ×2 (04:58→14:41)
[2020-03-30] MEDS ORDERED: Naloxone 0.4 MG/ML INJ IVP PRN (05:14)
[2020-03-30] MEDS ORDERED: Perflutren Lipid Microsphere 1.3 ML in 0.9 % Sodium Chloride 8.7 ML IVP PRN ×2 (05:17→07:25)
[2020-03-30] MEDS ORDERED: D5% in Water 1,000 ML IVC PRN (05:18)
[2020-03-30] MEDS ORDERED: *HR* Dextrose 50 % in Water (Vial) 50 ML VIAL IVP PRN (05:18)
[2020-03-30] MEDS ORDERED: Dextrose Gel 15 GM/37.5 ML TUBE PO PRN ×2 (05:18)
[2020-03-30] MEDS: Norepinephrine 4 MG/254 ML IV.SOLN IVC SCH ×2 (05:49→17:05)
[2020-03-30] MEDS ORDERED: Ipratropium/Albuterol Neb 3 ML IH PRN (05:51)
[2020-03-30] MEDS ORDERED: Insulin LISPRO 300 UNITS/3 ML VIAL SQ SCH (06:00)
[2020-03-30] MEDS ORDERED: Azithromycin 500 MG in 0.9 % Sodium Chloride 250 ML IVPB SCH (06:00)
[2020-03-30] MEDS ORDERED: *HR* Heparin 5,000 UNIT/ML VIAL IVP ONE (06:03)
[2020-03-30] MEDS ORDERED: *HR* Heparin 5,000 UNIT/ML VIAL IVP PRN ×2 (06:03)
[2020-03-30 06:09] LABS: Basophils % 0.2 %; Hematocrit 47.8 % (35.3-44.9); Hemoglobin 14.6 g/dL (11.5-15.4); Lymphocytes # 1.1 K/mcL (0.6-4.6); Lymphocytes % 6.9 %; Mean Corpuscular HGB Conc 30.5 g/dL (31.6-35.5); Mean Corpuscular Hemoglobin 31.9 pg (28.0-33.3); Mean Corpuscular Volume 104.6 fL (83.0-100.0); Mean Platelet Volume 11.2 fL (9.4-12.4); Monocytes # 0.7 K/mcL (0.0-1.3); Monocytes % 3.9 %; Neutrophils # 14.5 K/mcL (1.6-8.9); Platelet Count 200 K/mcL (140-400); Red Blood Count 4.57 M/mcL (3.82-4.97); Red Cell Distribution Width 13.7 % (11.5-14.5); White Blood Count 16.5 K/mcL (4.3-11.1)
[2020-03-30 06:17] LABS: ABG Base Excess -7 mEq/L (-2 to 3); ABG HCO3 23 mEq/L (21-27); ABG Oxygen Saturation 94 % (95-98); ABG PCO2 65 mmHg (35-45); ABG PH 7.16 pH Units (7.32-7.45); ABG PO2 90 mmHg (85-104); ABG TCO2 25 mEq/L (20-26); Blood Gas Modality AF; Blood Gas VT 400 cc
[2020-03-30 06:28] LABS: Albumin 3.4 g/dL (3.5-5.7); Albumin/Globulin Ratio 1.2 (1.1-2.2); Bilirubin,Total 0.5 mg/dL (0.3-1.0); Calcium 7.4 mg/dL (8.6-10.3); Globulin 2.8 g/dL (2.4-3.5); Magnesium 1.8 mg/dL (1.6-2.6); Potassium 5.2 mEq/L (3.5-5.1); Total Protein 6.2 g/dL (6.4-8.9)
[2020-03-30] MEDS ORDERED: Artificial Tears SOLN 15 ML BOTTLE BOTH EYES PRN (06:35)
[2020-03-30 06:53] LABS: Heparin anti-factor XA UFH < 0.04 IU/mL (0.30-0.70)
[2020-03-30 06:53] LABS: VBG Ionized Calcium 0.96 mmol/L (1.15-1.35)
[2020-03-30 06:54] LABS: INR 1.1; Prothrombin Time 12.8 Seconds (9.4-12.1)
[2020-03-30] MEDS: Heparin 25,000UNIT/250ML 1/2NS 25,000 UNIT/250 ML IV.SOLN IVC SCH (07:05)
[2020-03-30] MEDS: Ipratropium/Albuterol Neb 3 ML IH SCH ×5 (07:25→23:30)
[2020-03-30] MEDS ORDERED: *HR* Rocuronium Bromide 50 MG/5 ML VIAL IVP ONE ×2 (07:28→08:15)
[2020-03-30] MEDS: cefTRIAXone 1,000 MG in Water for inj. (sterile) 10 ML IVP SCH (07:48)
[2020-03-30] MEDS: Chlorhexidine Rinse 15 ML MOUTHWASH MM SCH ×2 (07:48→20:20)
[2020-03-30] MEDS: MethylPREDNISolone 40 MG/ML VIAL IVP SCH ×3 (07:49→23:42)
[2020-03-30] MEDS: Pantoprazole 40 MG VIAL IVP SCH (07:49)
[2020-03-30] MEDS ORDERED: Furosemide 40 MG/4 ML VIAL IVP ONE (09:06)
[2020-03-30] MEDS ORDERED: Potassium Phosphate 44 MEQ in 0.9 % Sodium Chloride 250 ML IVPB PRN (09:12)
[2020-03-30] MEDS: Midazolam HCl 50 MG/100 ML IV.SOLN IVC SCH (09:18)
[2020-03-30] MEDS: Furosemide 40 MG/4 ML VIAL IVP SCH (09:24)
[2020-03-30] MEDS: Artificial Tears SOLN 15 ML BOTTLE BOTH EYES SCH ×5 (09:25→23:42)
[2020-03-30 09:44] LABS: Adenovirus Not Detected (Not Detect); Coronavirus 229E Not Detected (Not Detect); Coronavirus HKU1 Not Detected (Not Detect)
[2020-03-30 09:45] LABS: Bordetella Pertussis Not Detected (Not Detect); Chlamydophila pneumoniae Not Detected (Not Detect); Coronavirus NL63 Not Detected (Not Detect); Coronavirus OC43 Not Detected (Not Detect); Human Metapneumovirus Not Detected (Not Detect); Human Rhinovirus/Enterovirus Not Detected (Not Detect); Influenza A Subtype 2009 H1 Not Detected (Not Detect); Influenza B Not Detected (Not Detect); Mycoplasma pneumoniae Not Detected (Not Detect); Parainfluenza Virus 1 Not Detected (Not Detect); Parainfluenza Virus 2 Not Detected (Not Detect); Parainfluenza Virus 3 Not Detected (Not Detect); Parainfluenza Virus 4 Not Detected (Not Detect); Respiratory Syncytial Virus Not Detected (Not Detect); SARS-CoV-2 Not Detected (Not Detect)
[2020-03-30 10:53] LABS: Calcium 7.3 mg/dL (8.6-10.3); Potassium 4.6 mEq/L (3.5-5.1)
[2020-03-30 10:55] LABS: C-Reactive Protein 34 mg/L (Less than 10); Lactate Dehydrogenase 156 Units/L (140-271)
[2020-03-30 11:13] LABS: Ferritin 43 ng/mL (10-120)
[2020-03-30] MEDS: Calcium Gluconate 1gm/50mL 1 GM/50 ML BAG IVPB PRN ×2 (11:24→23:38)
[2020-03-30 11:25] LABS: ABG Base Excess -7 mEq/L (-2 to 3); ABG HCO3 24 mEq/L (21-27); ABG Oxygen Saturation 100 % (95-98); ABG PCO2 68 mmHg (35-45); ABG PH 7.16 pH Units (7.32-7.45); ABG PO2 544 mmHg (85-104); ABG TCO2 27 mEq/L (20-26); Blood Gas Modality ASSIST CONTROL; Blood Gas VT 450 cc
[2020-03-30] MEDS: Insulin LISPRO 300 UNITS/3 ML VIAL SQ SCH ×4 (11:54→23:43)
[2020-03-30] MEDS: Doxycycline 100 MG in 0.9 % Sodium Chloride Mini Bag 100 ML IVPB SCH (17:24)
[2020-03-30 20:10] LABS: ABG Base Excess -3 mEq/L (-2 to 3); ABG HCO3 23 mEq/L (21-27); ABG Oxygen Saturation 95 % (95-98); ABG PCO2 42 mmHg (35-45); ABG PH 7.35 pH Units (7.32-7.45); ABG PO2 80 mmHg (85-104); ABG TCO2 24 mEq/L (20-26); Blood Gas Modality AF; Blood Gas VT 450 cc
[2020-03-30] MEDS: Insulin DETEMIR 100 UNIT/ML X5UNITS SQ SCH (20:20)
[2020-03-30 21:02] LABS: VBG Ionized Calcium 1.04 mmol/L (1.15-1.35)
[2020-03-31] MEDS ORDERED: Acetaminophen 325 MG TABLET PO PRN (00:10)
[2020-03-31] MEDS: FentaNYL (PF) 1,000 MCG/100 ML IV.SOLN IVC SCH ×3 (01:14→23:37)
[2020-03-31] MEDS: Ipratropium/Albuterol Neb 3 ML IH SCH ×6 (03:29→23:27)
[2020-03-31 03:32] LABS: Basophils % 0.1 %; Hematocrit 48.4 % (35.3-44.9); Hemoglobin 15.6 g/dL (11.5-15.4); Immature Granulocytes % 0.5 % (0-4); Lymphocytes # 2.8 K/mcL (0.6-4.6); Mean Corpuscular HGB Conc 32.2 g/dL (31.6-35.5); Mean Corpuscular Hemoglobin 31.6 pg (28.0-33.3); Mean Platelet Volume 11.4 fL (9.4-12.4); Monocytes # 0.7 K/mcL (0.0-1.3); Monocytes % 3.5 %; Neutrophils # 16.4 K/mcL (1.6-8.9); Platelet Count 200 K/mcL (140-400); Red Blood Count 4.94 M/mcL (3.82-4.97); Red Cell Distribution Width 13.7 % (11.5-14.5); Segmented Neutrophils % 81.9 %
[2020-03-31 03:45] LABS: Magnesium 2.2 mg/dL (1.6-2.6); Potassium 4.2 mEq/L (3.5-5.1)
[2020-03-31] MEDS: Artificial Tears SOLN 15 ML BOTTLE BOTH EYES SCH ×5 (04:07→19:46)
[2020-03-31] MEDS: Insulin LISPRO 300 UNITS/3 ML VIAL SQ SCH ×5 (04:07→19:46)
[2020-03-31] MEDS: Midazolam HCl 50 MG/100 ML IV.SOLN IVC SCH (04:07)
[2020-03-31 05:33] LABS: ABG Base Excess -2 mEq/L (-2 to 3); ABG HCO3 24 mEq/L (21-27); ABG Oxygen Saturation 94 % (95-98); ABG PCO2 44 mmHg (35-45); ABG PH 7.34 pH Units (7.32-7.45); ABG PO2 77 mmHg (85-104); ABG TCO2 25 mEq/L (20-26); Blood Gas Modality AF; Blood Gas VT 450 cc
[2020-03-31] MEDS: Doxycycline 100 MG in 0.9 % Sodium Chloride Mini Bag 100 ML IVPB SCH ×2 (05:50→16:53)
[2020-03-31] MEDS: MethylPREDNISolone 40 MG/ML VIAL IVP SCH ×2 (07:45→16:14)
[2020-03-31] MEDS: Furosemide 40 MG/4 ML VIAL IVP SCH (07:45)
[2020-03-31] MEDS: Chlorhexidine Rinse 15 ML MOUTHWASH MM SCH ×2 (07:45→19:48)
[2020-03-31] MEDS: Pantoprazole 40 MG VIAL IVP SCH (07:46)
[2020-03-31] MEDS: cefTRIAXone 1,000 MG in Water for inj. (sterile) 10 ML IVP SCH (07:46)
[2020-03-31] MEDS: Aspirin 81 MG TAB.CHEW PO SCH (11:52)
[2020-03-31] MEDS: Heparin 25,000UNIT/250ML 1/2NS 25,000 UNIT/250 ML IV.SOLN IVC SCH (14:52)
[2020-03-31] MEDS: Piperacillin/Tazobactam 3.375 GM in 0.9 % Sodium Chloride Mini Bag 100 ML IVPB SCH (16:15)
[2020-03-31] MEDS: Insulin DETEMIR 100 UNIT/ML X5UNITS SQ SCH (19:48)
[2020-04-01] MEDS: Insulin LISPRO 300 UNITS/3 ML VIAL SQ SCH ×8 (00:09→23:14)
[2020-04-01] MEDS: Artificial Tears SOLN 15 ML BOTTLE BOTH EYES SCH ×7 (00:10→23:14)
[2020-04-01] MEDS: MethylPREDNISolone 40 MG/ML VIAL IVP SCH ×4 (00:12→23:14)
[2020-04-01] MEDS: Piperacillin/Tazobactam 3.375 GM in 0.9 % Sodium Chloride Mini Bag 100 ML IVPB SCH ×4 (00:12→23:14)
[2020-04-01] MEDS: Midazolam HCl 50 MG/100 ML IV.SOLN IVC SCH ×2 (00:33→13:03)
[2020-04-01] MEDS: Ipratropium/Albuterol Neb 3 ML IH SCH ×6 (03:30→23:35)
[2020-04-01] MEDS: Norepinephrine 4 MG/254 ML IV.SOLN IVC SCH (04:14)
[2020-04-01 04:16] LABS: Basophils % 0.1 %; Hematocrit 45.5 % (35.3-44.9); Hemoglobin 14.5 g/dL (11.5-15.4); Immature Granulocytes % 0.7 % (0-4); Lymphocytes # 1.7 K/mcL (0.6-4.6); Lymphocytes % 10.2 %; Mean Corpuscular HGB Conc 31.9 g/dL (31.6-35.5); Mean Corpuscular Hemoglobin 30.7 pg (28.0-33.3); Mean Corpuscular Volume 96.2 fL (83.0-100.0); Mean Platelet Volume 11.8 fL (9.4-12.4); Monocytes # 0.5 K/mcL (0.0-1.3); Monocytes % 2.8 %; Neutrophils # 14.2 K/mcL (1.6-8.9); Platelet Count 140 K/mcL (140-400); Red Blood Count 4.73 M/mcL (3.82-4.97); Red Cell Distribution Width 13.9 % (11.5-14.5); Segmented Neutrophils % 86.2 %; White Blood Count 16.4 K/mcL (4.3-11.1)
[2020-04-01 04:22] LABS: Calcium 8.2 mg/dL (8.6-10.3); Magnesium 2.1 mg/dL (1.6-2.6); Phosphorous 3.3 mg/dL (2.7-4.5); Potassium 3.5 mEq/L (3.5-5.1)
[2020-04-01 05:10] LABS: ABG Base Excess -1 mEq/L (-2 to 3); ABG HCO3 25 mEq/L (21-27); ABG Oxygen Saturation 92 % (95-98); ABG PCO2 43 mmHg (35-45); ABG PH 7.37 pH Units (7.32-7.45); ABG PO2 67 mmHg (85-104); ABG TCO2 26 mEq/L (20-26); Blood Gas VT 450 cc
[2020-04-01] MEDS: Doxycycline 100 MG in 0.9 % Sodium Chloride Mini Bag 100 ML IVPB SCH ×2 (06:02→18:22)
[2020-04-01] MEDS: FentaNYL (PF) 1,000 MCG/100 ML IV.SOLN IVC SCH ×2 (07:30→15:45)
[2020-04-01] MEDS: Aspirin 81 MG TAB.CHEW PO SCH (07:59)
[2020-04-01] MEDS: Pantoprazole 40 MG VIAL IVP SCH (07:59)
[2020-04-01] MEDS: Chlorhexidine Rinse 15 ML MOUTHWASH MM SCH ×2 (07:59→20:21)
[2020-04-01] MEDS ORDERED: Albumin 25% 12.5gm/50mL 12.5 GM/50 ML IV.SOLN IVPB ONE (14:09)
[2020-04-01] MEDS: Albumin Human 5% 12.5 GM/250 ML IV.SOLN IVPB SCH ×2 (14:53→18:23)
[2020-04-01] MEDS: QUEtiapine Fumarate 25 MG TABLET GTUBE SCH (20:21)
[2020-04-01] MEDS: Insulin DETEMIR 100 UNIT/ML X5UNITS SQ SCH (20:21)
[2020-04-01] MEDS: FentaNYL (PF) 2,500 MCG/50 ML IV.SOLN IVC SCH (21:26)
[2020-04-01] MEDS: Heparin 25,000UNIT/250ML 1/2NS 25,000 UNIT/250 ML IV.SOLN IVC SCH (21:27)
[2020-04-01] MEDS ORDERED: *HR* Heparin 5,000 UNIT/ML VIAL SQ SCH (22:00)
[2020-04-02] MEDS: Midazolam HCl 50 MG/100 ML IV.SOLN IVC SCH (01:44)
[2020-04-02] MEDS ORDERED: *HR* Metoprolol 5 MG/5 ML VIAL IVP ONE ×3 (02:00→06:59)
[2020-04-02] MEDS ORDERED: *HR* Heparin 5,000 UNIT/ML VIAL IVP ONE (02:10)
[2020-04-02] MEDS ORDERED: *HR* Heparin 5,000 UNIT/ML VIAL IVP PRN ×2 (02:10)
[2020-04-02] MEDS: Ipratropium/Albuterol Neb 3 ML IH SCH ×6 (03:20→23:32)
[2020-04-02] MEDS: Heparin 25,000UNIT/250ML 1/2NS 25,000 UNIT/250 ML IV.SOLN IVC SCH ×2 (03:36→20:10)
[2020-04-02] MEDS: Norepinephrine 4 MG/254 ML IV.SOLN IVC SCH (03:37)
[2020-04-02] MEDS: Artificial Tears SOLN 15 ML BOTTLE BOTH EYES SCH ×6 (03:37→23:52)
[2020-04-02] MEDS: Insulin LISPRO 300 UNITS/3 ML VIAL SQ SCH ×6 (03:37→23:53)
[2020-04-02 03:40] LABS: Hemoglobin 13.7 g/dL (11.5-15.4); Monocytes % 2.6 %; Platelet Count 127 K/mcL (140-400)
[2020-04-02 03:41] LABS: Hematocrit 41.5 % (35.3-44.9); Immature Granulocytes % 0.6 % (0-4); Immature Platelets 10.3 % (1.1-6.1); Lymphocytes # 1.3 K/mcL (0.6-4.6); Lymphocytes % 11.2 %; Mean Corpuscular Hemoglobin 31.5 pg (28.0-33.3); Mean Corpuscular Volume 95.4 fL (83.0-100.0); Mean Platelet Volume 11.5 fL (9.4-12.4); Monocytes # 0.3 K/mcL (0.0-1.3); Neutrophils # 10.1 K/mcL (1.6-8.9); Red Blood Count 4.35 M/mcL (3.82-4.97); Segmented Neutrophils % 85.6 %; White Blood Count 11.8 K/mcL (4.3-11.1)
[2020-04-02 03:42] LABS: VBG Ionized Calcium 1.08 mmol/L (1.15-1.35)
[2020-04-02 03:59] LABS: Magnesium 2.1 mg/dL (1.6-2.6); Phosphorous 2.6 mg/dL (2.7-4.5)
[2020-04-02 03:59] LABS: Calcium 8.2 mg/dL (8.6-10.3); Potassium 3.2 mEq/L (3.5-5.1)
[2020-04-02] MEDS ORDERED: Doxycycline 100 MG VIAL ONE (04:04)
[2020-04-02] MEDS: Potassium Chloride 40 MEQ/200 ML BAG IVPB PRN ×2 (04:05→05:08)
[2020-04-02] MEDS: Calcium Gluconate 1gm/50mL 1 GM/50 ML BAG IVPB PRN (04:05)
[2020-04-02 05:02] LABS: ABG Base Excess 0 mEq/L (-2 to 3); ABG HCO3 24 mEq/L (21-27); ABG Oxygen Saturation 96 % (95-98); ABG PCO2 38 mmHg (35-45); ABG PH 7.42 pH Units (7.32-7.45); ABG PO2 82 mmHg (85-104); ABG TCO2 26 mEq/L (20-26); Blood Gas Modality AF; Blood Gas VT 450 cc
[2020-04-02] MEDS: Doxycycline 100 MG in 0.9 % Sodium Chloride Mini Bag 100 ML IVPB SCH ×2 (05:32→19:11)
[2020-04-02] MEDS: Piperacillin/Tazobactam 3.375 GM in 0.9 % Sodium Chloride Mini Bag 100 ML IVPB SCH ×3 (08:24→23:52)
[2020-04-02] MEDS: Aspirin 81 MG TAB.CHEW PO SCH (08:25)
[2020-04-02] MEDS: Pantoprazole 40 MG VIAL IVP SCH (08:41)
[2020-04-02] MEDS: Chlorhexidine Rinse 15 ML MOUTHWASH MM SCH ×2 (08:45→20:02)
[2020-04-02] MEDS: MethylPREDNISolone 40 MG/ML VIAL IVP SCH ×2 (08:45→20:02)
[2020-04-02] MEDS: FentaNYL (PF) 2,500 MCG/50 ML IV.SOLN IVC SCH (09:35)
[2020-04-02] MEDS: Furosemide 40 MG/4 ML VIAL IVP SCH ×2 (10:35→17:56)
[2020-04-02 14:44] LABS: Calcium 8.5 mg/dL (8.6-10.3); Potassium 3.5 mEq/L (3.5-5.1)
[2020-04-02] MEDS: Dexmedetomidine HCl 400 MCG/100 ML MLS IVC SCH (15:55)
[2020-04-02] MEDS: Potassium Chloride Elixir 20 MEQ/15 ML UDC GTUBE SCH ×2 (16:10→20:03)
[2020-04-02] MEDS: Insulin DETEMIR 100 UNIT/ML X5UNITS SQ SCH (20:03)
[2020-04-02] MEDS: QUEtiapine Fumarate 25 MG TABLET GTUBE SCH (20:03)
[2020-04-03] MEDS: Dexmedetomidine HCl 400 MCG/100 ML MLS IVC SCH ×4 (00:03→13:15)
[2020-04-03] MEDS ORDERED: *HR* Metoprolol 5 MG/5 ML VIAL IVP ONE (00:05)
[2020-04-03] MEDS: FentaNYL (PF) 2,500 MCG/50 ML IV.SOLN IVC SCH ×3 (00:13→15:52)
[2020-04-03] MEDS: Ipratropium/Albuterol Neb 3 ML IH SCH ×6 (03:33→23:18)
[2020-04-03 03:51] LABS: Hematocrit 45.1 % (35.3-44.9); Hemoglobin 14.5 g/dL (11.5-15.4); Immature Platelets 9.7 % (1.1-6.1); Mean Corpuscular HGB Conc 32.2 g/dL (31.6-35.5); Mean Corpuscular Hemoglobin 32.2 pg (28.0-33.3); Mean Platelet Volume 11.1 fL (9.4-12.4); Red Blood Count 4.51 M/mcL (3.82-4.97); Red Cell Distribution Width 14.7 % (11.5-14.5); White Blood Count 12.8 K/mcL (4.3-11.1)
[2020-04-03 03:56] LABS: VBG Ionized Calcium 1.07 mmol/L (1.15-1.35)
[2020-04-03] MEDS: Artificial Tears SOLN 15 ML BOTTLE BOTH EYES SCH ×6 (04:02→22:52)
[2020-04-03] MEDS: Norepinephrine 4 MG/254 ML IV.SOLN IVC SCH (04:03)
[2020-04-03] MEDS: Insulin LISPRO 300 UNITS/3 ML VIAL SQ SCH ×6 (04:03→23:26)
[2020-04-03 04:10] LABS: Magnesium 1.9 mg/dL (1.6-2.6); Potassium 4.7 mEq/L (3.5-5.1)
[2020-04-03] MEDS: Calcium Gluconate 1gm/50mL 1 GM/50 ML BAG IVPB PRN ×2 (04:18→14:49)
[2020-04-03] MEDS: Doxycycline 100 MG in 0.9 % Sodium Chloride Mini Bag 100 ML IVPB SCH ×2 (04:54→18:29)
[2020-04-03 04:59] LABS: ABG Base Excess -2 mEq/L (-2 to 3); ABG HCO3 27 mEq/L (21-27); ABG Oxygen Saturation 93 % (95-98); ABG PCO2 60 mmHg (35-45); ABG PH 7.26 pH Units (7.32-7.45); ABG PO2 77 mmHg (85-104); ABG TCO2 29 mEq/L (20-26); Blood Gas Modality AF; Blood Gas VT 400 cc
[2020-04-03] MEDS: Furosemide 40 MG/4 ML VIAL IVP SCH ×2 (08:21→16:31)
[2020-04-03] MEDS: Pantoprazole 40 MG VIAL IVP SCH (08:35)
[2020-04-03 08:38] LABS: ABG Base Excess -2 mEq/L (-2 to 3); ABG HCO3 29 mEq/L (21-27); ABG Oxygen Saturation 93 % (95-98); ABG PCO2 73 mmHg (35-45); ABG PO2 82 mmHg (85-104); ABG TCO2 31 mEq/L (20-26); Blood Gas Modality ASSIST CONTROL; Blood Gas VT 400 cc
[2020-04-03] MEDS: MethylPREDNISolone 40 MG/ML VIAL IVP SCH ×2 (08:44→20:31)
[2020-04-03] MEDS: Piperacillin/Tazobactam 3.375 GM in 0.9 % Sodium Chloride Mini Bag 100 ML IVPB SCH ×3 (08:47→23:32)
[2020-04-03] MEDS: Potassium Chloride Elixir 20 MEQ/15 ML UDC GTUBE SCH ×2 (08:52→20:45)
[2020-04-03] MEDS: Chlorhexidine Rinse 15 ML MOUTHWASH MM SCH ×2 (08:52→20:31)
[2020-04-03] MEDS: Aspirin 81 MG TAB.CHEW PO SCH (08:59)
[2020-04-03] MEDS ORDERED: Haloperidol Oral Conc 10 MG/5 ML UDC GTUBE PRN ×2 (10:27→12:25)
[2020-04-03] MEDS ORDERED: *HR* Midazolam HCl 5 MG/5 ML VIAL IVP ONE (10:28)
[2020-04-03] MEDS ORDERED: Albuterol 2.5 MG/3 ML NEBULIZER ONE (10:36)
[2020-04-03] MEDS ORDERED: Haloperidol Oral Conc 10 MG/5 ML UDC GTUBE ONE (10:46)
[2020-04-03] MEDS ORDERED: *HR* Rocuronium Bromide 50 MG/5 ML VIAL IVP ONE (11:54)
[2020-04-03] MEDS ORDERED: Haloperidol Oral Conc 10 MG/5 ML UDC GTUBE STA (11:58)
[2020-04-03 12:59] LABS: VBG Ionized Calcium 1.06 mmol/L (1.15-1.35)
[2020-04-03] MEDS: *HR* Midazolam HCl 2 MG/2 ML VIAL IVP PRN ×2 (13:01→14:53)
[2020-04-03] MEDS: Heparin 25,000UNIT/250ML 1/2NS 25,000 UNIT/250 ML IV.SOLN IVC SCH (13:10)
[2020-04-03] MEDS: Midazolam HCl 50 MG/100 ML IV.SOLN IVC SCH ×2 (17:04→23:25)
[2020-04-03] MEDS: Insulin DETEMIR 100 UNIT/ML X5UNITS SQ SCH (20:35)
[2020-04-03 22:50] LABS: ABG Base Excess 6 mEq/L (-2 to 3); ABG HCO3 32 mEq/L (21-27); ABG Oxygen Saturation 99 % (95-98); ABG PCO2 49 mmHg (35-45); ABG PH 7.42 pH Units (7.32-7.45); ABG PO2 117 mmHg (85-104); ABG TCO2 33 mEq/L (20-26); Blood Gas VT 450 cc
[2020-04-04] MEDS: FentaNYL (PF) 2,500 MCG/50 ML IV.SOLN IVC SCH ×2 (03:30→16:00)
[2020-04-04] MEDS: Ipratropium/Albuterol Neb 3 ML IH SCH ×6 (03:39→23:45)
[2020-04-04] MEDS: Insulin LISPRO 300 UNITS/3 ML VIAL SQ SCH ×6 (04:01→23:33)
[2020-04-04] MEDS: Artificial Tears SOLN 15 ML BOTTLE BOTH EYES SCH ×6 (04:01→23:32)
[2020-04-04 05:05] LABS: ABG Base Excess 6 mEq/L (-2 to 3); ABG HCO3 33 mEq/L (21-27); ABG Oxygen Saturation 96 % (95-98); ABG PCO2 55 mmHg (35-45); ABG PH 7.39 pH Units (7.32-7.45); ABG PO2 82 mmHg (85-104); ABG TCO2 34 mEq/L (20-26); Blood Gas VT 400 cc
[2020-04-04 05:13] LABS: VBG Ionized Calcium 1.06 mmol/L (1.15-1.35)
[2020-04-04 05:18] LABS: Hematocrit 46.3 % (35.3-44.9); Hemoglobin 14.5 g/dL (11.5-15.4); Mean Corpuscular HGB Conc 31.3 g/dL (31.6-35.5); Mean Corpuscular Hemoglobin 30.3 pg (28.0-33.3); Mean Corpuscular Volume 96.9 fL (83.0-100.0); Mean Platelet Volume 12.1 fL (9.4-12.4); Platelet Count 121 K/mcL (140-400); Red Blood Count 4.78 M/mcL (3.82-4.97); Red Cell Distribution Width 14.6 % (11.5-14.5); White Blood Count 10.5 K/mcL (4.3-11.1)
[2020-04-04 05:22] LABS: Calcium 8.3 mg/dL (8.6-10.3); Magnesium 1.8 mg/dL (1.6-2.6); Potassium 4.3 mEq/L (3.5-5.1)
[2020-04-04] MEDS: Calcium Gluconate 1gm/50mL 1 GM/50 ML BAG IVPB PRN ×2 (05:44→13:28)
[2020-04-04] MEDS: Doxycycline 100 MG in 0.9 % Sodium Chloride Mini Bag 100 ML IVPB SCH ×2 (05:44→17:51)
[2020-04-04] MEDS: Midazolam HCl 50 MG/100 ML IV.SOLN IVC SCH ×3 (05:55→21:55)
[2020-04-04] MEDS: Potassium Chloride Elixir 20 MEQ/15 ML UDC GTUBE SCH ×2 (08:26→19:44)
[2020-04-04] MEDS: Aspirin 81 MG TAB.CHEW PO SCH (08:26)
[2020-04-04] MEDS: Furosemide 40 MG/4 ML VIAL IVP SCH ×2 (08:26→16:37)
[2020-04-04] MEDS: Chlorhexidine Rinse 15 ML MOUTHWASH MM SCH ×2 (08:26→19:40)
[2020-04-04] MEDS: Pantoprazole 40 MG VIAL IVP SCH (08:26)
[2020-04-04] MEDS: MethylPREDNISolone 40 MG/ML VIAL IVP SCH ×2 (08:27→19:40)
[2020-04-04] MEDS: Piperacillin/Tazobactam 3.375 GM in 0.9 % Sodium Chloride Mini Bag 100 ML IVPB SCH ×3 (08:27→23:32)
[2020-04-04 09:25] LABS: Phosphorous 4.9 mg/dL (2.7-4.5)
[2020-04-04 12:18] LABS: VBG Ionized Calcium 1.06 mmol/L (1.15-1.35)
[2020-04-04] MEDS: Heparin 25,000UNIT/250ML 1/2NS 25,000 UNIT/250 ML IV.SOLN IVC SCH (17:54)
[2020-04-04 18:58] LABS: VBG Ionized Calcium 1.06 mmol/L (1.15-1.35)
[2020-04-04] MEDS: Insulin DETEMIR 100 UNIT/ML X5UNITS SQ SCH (19:43)
[2020-04-05] MEDS: FentaNYL (PF) 2,500 MCG/50 ML IV.SOLN IVC SCH ×2 (03:00→17:02)
[2020-04-05] MEDS: Ipratropium/Albuterol Neb 3 ML IH SCH ×6 (03:31→23:29)
[2020-04-05] MEDS: Midazolam HCl 50 MG/100 ML IV.SOLN IVC SCH ×3 (03:34→18:21)
[2020-04-05] MEDS: Artificial Tears SOLN 15 ML BOTTLE BOTH EYES SCH ×5 (03:34→20:55)
[2020-04-05] MEDS: Insulin LISPRO 300 UNITS/3 ML VIAL SQ SCH ×5 (03:35→20:55)
[2020-04-05 04:15] LABS: ABG Base Excess 11 mEq/L (-2 to 3); ABG HCO3 40 mEq/L (21-27); ABG Oxygen Saturation 95 % (95-98); ABG PCO2 68 mmHg (35-45); ABG PH 7.37 pH Units (7.32-7.45); ABG PO2 79 mmHg (85-104); ABG TCO2 42 mEq/L (20-26); Blood Gas Modality ASSIST CONTROL; Blood Gas VT 400 cc
[2020-04-05] MEDS: Doxycycline 100 MG in 0.9 % Sodium Chloride Mini Bag 100 ML IVPB SCH ×2 (06:02→17:23)
[2020-04-05 06:10] LABS: Basophils % 0.1 %; Hematocrit 45.3 % (35.3-44.9); Hemoglobin 14.3 g/dL (11.5-15.4); Immature Granulocytes % 0.5 % (0-4); Lymphocytes # 1.6 K/mcL (0.6-4.6); Lymphocytes % 12.5 %; Mean Corpuscular HGB Conc 31.6 g/dL (31.6-35.5); Mean Corpuscular Hemoglobin 31.4 pg (28.0-33.3); Mean Corpuscular Volume 99.6 fL (83.0-100.0); Monocytes # 0.9 K/mcL (0.0-1.3); Monocytes % 6.9 %; Neutrophils # 10.4 K/mcL (1.6-8.9); Platelet Count 117 K/mcL (140-400); Red Blood Count 4.55 M/mcL (3.82-4.97); Red Cell Distribution Width 14.7 % (11.5-14.5)
[2020-04-05 06:21] LABS: VBG Ionized Calcium 1.09 mmol/L (1.15-1.35)
[2020-04-05 06:30] LABS: BUN/Creatinine Ratio 59 (6-26); Blood Urea Nitrogen 57 mg/dL (8-23); Calcium 8.8 mg/dL (8.6-10.3); Carbon Dioxide 37 mEq/L (23-29); Chloride 105 mEq/L (98-107); Glucose 244 mg/dL (70-105); Osmolality,Calculated 326 (280-300); Potassium 4.5 mEq/L (3.5-5.1); Sodium 146 mEq/L (136-145); eGFR For African Americans > 60 (> 60); eGFR For Non-African Americans 57 (> 60)
[2020-04-05] MEDS: Calcium Gluconate 1gm/50mL 1 GM/50 ML BAG IVPB PRN ×2 (06:53→13:07)
[2020-04-05] MEDS: Potassium Chloride Elixir 20 MEQ/15 ML UDC GTUBE SCH ×2 (07:51→20:54)
[2020-04-05] MEDS: Furosemide 40 MG/4 ML VIAL IVP SCH (07:51)
[2020-04-05] MEDS: Chlorhexidine Rinse 15 ML MOUTHWASH MM SCH ×2 (07:51→20:54)
[2020-04-05] MEDS: Pantoprazole 40 MG VIAL IVP SCH (07:51)
[2020-04-05] MEDS: Aspirin 81 MG TAB.CHEW PO SCH (07:52)
[2020-04-05] MEDS: Piperacillin/Tazobactam 3.375 GM in 0.9 % Sodium Chloride Mini Bag 100 ML IVPB SCH ×2 (07:52→15:54)
[2020-04-05] MEDS: MethylPREDNISolone 40 MG/ML VIAL IVP SCH ×2 (08:14→20:53)
[2020-04-05 12:16] LABS: VBG Ionized Calcium 1.09 mmol/L (1.15-1.35)
[2020-04-05] MEDS: Heparin 25,000UNIT/250ML 1/2NS 25,000 UNIT/250 ML IV.SOLN IVC SCH (15:11)
[2020-04-05 17:44] LABS: VBG Ionized Calcium 1.13 mmol/L (1.15-1.35)
[2020-04-05] MEDS: Insulin DETEMIR 100 UNIT/ML X5UNITS SQ SCH (20:54)
[2020-04-06] MEDS: Insulin LISPRO 300 UNITS/3 ML VIAL SQ SCH ×4 (00:09→11:54)
[2020-04-06] MEDS: Piperacillin/Tazobactam 3.375 GM in 0.9 % Sodium Chloride Mini Bag 100 ML IVPB SCH ×2 (00:09→08:17)
[2020-04-06] MEDS: Artificial Tears SOLN 15 ML BOTTLE BOTH EYES SCH ×4 (00:10→11:53)
[2020-04-06] MEDS: Midazolam HCl 50 MG/100 ML IV.SOLN IVC SCH (02:17)
[2020-04-06] MEDS: Ipratropium/Albuterol Neb 3 ML IH SCH ×3 (03:16→11:14)
[2020-04-06 04:41] LABS: ABG Base Excess 12 mEq/L (-2 to 3); ABG HCO3 41 mEq/L (21-27); ABG Oxygen Saturation 97 % (95-98); ABG PCO2 68 mmHg (35-45); ABG PH 7.39 pH Units (7.32-7.45); ABG PO2 94 mmHg (85-104); ABG TCO2 44 mEq/L (20-26); Blood Gas Modality ASSIST CONTROL; Blood Gas VT 400 cc
[2020-04-06] MEDS: Doxycycline 100 MG in 0.9 % Sodium Chloride Mini Bag 100 ML IVPB SCH (05:23)
[2020-04-06 05:28] LABS: Basophils % 0.1 %; Hemoglobin 14.6 g/dL (11.5-15.4); Immature Granulocytes % 0.9 % (0-4); Lymphocytes # 1.5 K/mcL (0.6-4.6); Lymphocytes % 10.4 %; Mean Corpuscular HGB Conc 30.4 g/dL (31.6-35.5); Mean Corpuscular Hemoglobin 30.6 pg (28.0-33.3); Mean Corpuscular Volume 100.6 fL (83.0-100.0); Mean Platelet Volume 12.4 fL (9.4-12.4); Monocytes # 0.9 K/mcL (0.0-1.3); Monocytes % 6.4 %; Neutrophils # 11.5 K/mcL (1.6-8.9); Platelet Count 127 K/mcL (140-400); Red Blood Count 4.77 M/mcL (3.82-4.97); Red Cell Distribution Width 14.7 % (11.5-14.5); Segmented Neutrophils % 82.2 %
[2020-04-06 05:49] LABS: BUN/Creatinine Ratio 69 (6-26); Blood Urea Nitrogen 66 mg/dL (8-23); Calcium 9.4 mg/dL (8.6-10.3); Carbon Dioxide 37 mEq/L (23-29); Chloride 108 mEq/L (98-107); Glucose 295 mg/dL (70-105); Magnesium 2.1 mg/dL (1.6-2.6); Osmolality,Calculated 342 (280-300); Potassium 5.3 mEq/L (3.5-5.1); Sodium 151 mEq/L (136-145); eGFR For African Americans > 60 (> 60); eGFR For Non-African Americans 58 (> 60)
[2020-04-06] MEDS: FentaNYL (PF) 2,500 MCG/50 ML IV.SOLN IVC SCH (06:35)
[2020-04-06] MEDS: MethylPREDNISolone 40 MG/ML VIAL IVP SCH (08:17)
[2020-04-06] MEDS: Chlorhexidine Rinse 15 ML MOUTHWASH MM SCH (08:17)
[2020-04-06] MEDS: Pantoprazole 40 MG VIAL IVP SCH (08:18)
[2020-04-06] MEDS: Aspirin 81 MG TAB.CHEW PO SCH (08:19)
[2020-04-06] MEDS: Potassium Chloride Elixir 20 MEQ/15 ML UDC GTUBE SCH (08:19)
[2020-04-06] MEDS ORDERED: Furosemide 40 MG/4 ML VIAL IVP SCH (09:00)
[2020-04-06] MEDS ORDERED: Glycopyrrolate 0.2 MG/ML VIAL IVP ONE (12:48)
[2020-04-06] MEDS ORDERED: *HR* LORazepam 2 MG/ML VIAL IVP PRN ×2 (12:48→14:34)
[2020-04-06 13:38] VITALS: BP 125/81
[2020-04-06] MEDS ORDERED: FentaNYL (PF) 2,500 MCG/50 ML IV.SOLN IVC SCH (14:35)
== END 2020-04-06 16:01 | disposition expired | DRG 870 ==
LOC: ICNU → OBSVTOIN 04:26
PROVIDERS: ADMIT Internal Medicine; ATTEND Internal Medicine